=== PATIENT | male | born 1960 | race Two or more races ===

== ENCOUNTER → 2020-02-18 13:18 | Outpatient (BNVA) | payer OTHER, SELFPAY | PROVIDERS: PCP Internal Medicine; Visit Provider Nurse Practitioner Family | DX: Z76.89 Persons encountering health services in other specified circumstances (principal) ==

== ENCOUNTER → 2020-02-20 15:49 | Outpatient (BNVA) | payer OTHER, SELFPAY | PROVIDERS: PCP Internal Medicine; Visit Provider Nurse Practitioner Family | DX: Z76.89 Persons encountering health services in other specified circumstances (principal) ==

== ENCOUNTER 2020-02-28 16:02 | Outpatient (REF) | payer OTHER, SELFPAY | END 2020-02-28 16:03 | disposition home or self-care (01) | LOC: HO.LAB 16:02 | PROVIDERS: Visit Provider Internal Medicine | DX: Z20.828 Contact with and (suspected) exposure to other viral communicable diseases (principal) | CPT/HCPCS: C9803; U0003 ==

== ENCOUNTER 2020-05-15 12:34 | Emergency (ER) | payer OTHER, SELFPAY ==
[2020-05-15 12:50] VITALS: BP 130/80; PULSE 84; RESP 18; TEMP 36.6; O2SAT 99; BMI 29.4
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
--- NOTE | 2020-05-15 13:21 | XR_ITS ---
EXAMINATION: XR ELBOW, LEFT CLINICAL INFORMATION: Left elbow pain. COMPARISON: None TECHNIQUE: AP, lateral, and oblique views of the left elbow. FINDINGS: There is no acute fracture or dislocation. There is no joint effusion. A moderate-sized posterior olecranon spur is noted. The soft tissues are unremarkable. XR/XR elbow LT min 3V IMPRESSION: Moderate size posterior olecranon spur without other significant/acute abnormality.
[2020-05-15] MEDS: Ibuprofen 800 MG TABLET PO (13:43)
[2020-05-15] MEDS: oxyCODONE HCl Immed Release 5 MG TABLET PO (13:43)
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
== END 2020-05-15 15:26 | disposition home or self-care (01) ==
PROVIDERS: Emergency Provider Emergency Medicine; PCP Internal Medicine
DX: S43.401A Unspecified sprain of right shoulder joint, initial encounter (principal); S53.402A Unspecified sprain of left elbow, initial encounter; M77.8 Other enthesopathies, not elsewhere classified; M25.512 Pain in left shoulder; M25.511 Pain in right shoulder; I10 Essential (primary) hypertension; V43.52XA Car driver injured in collision with other type car in traffic accident, initial encounter; Y93.9 Activity, unspecified; Y92.410 Unspecified street and highway as the place of occurrence of the external cause; Y99.9 Unspecified external cause status; Z79.899 Other long term (current) drug therapy
CPT/HCPCS: 73030; 73080; 73090; 99283; 99284

== ENCOUNTER 2020-07-11 06:58 | Outpatient (REF) | payer OTHER, SELFPAY ==
[2020-07-11 07:27] LABS: Hematocrit 39.2 % (42-52); Hemoglobin 13.2 g/dl (14.0-18.0); Mean Corpuscular HGB Conc 33.7 g/dl (31.0-36.0); Mean Corpuscular Volume 94.9 fL (80-98); Mean Platelet Volume 9.9 fL (9.4-12.4); Platelet Count 203 X10*3/uL (160-400); Red Blood Count 4.13 X10*6/uL (4.60-5.80); Red Cell Distribution Width 13.2 % (11.0-16.0); White Blood Count 5.2 X10*3/uL (4.8-10.8)
[2020-07-11 07:57] LABS: Alanine Aminotransferase 15 U/L (0-40); Albumin Level 3.9 g/dL (3.5-5.0); Alkaline Phosphatase 65 U/L (39-117); Anion Gap 13 (12-20); Aspartate Amino Transferase 15 U/L (5-37); Bilirubin Total 0.3 mg/dL (0.0-1.0); Blood Urea Nitrogen 14 mg/dL (9-16); Calcium 8.9 mg/dL (8.4-10.2); Carbon Dioxide 24 mmol/L (22-29); Chloride 107 mmol/L (96-108); Cholesterol 135 mg/dL; Creatinine Urine 146.48 mg/dL; Estimated Glomerular Filt Rate > 60; Glucose Random 129 mg/dL (60-115); HDL Cholesterol 71 mg/dL; LDL Cholesterol Calculated 45 mg/dl; Microalbum/Creatinine Ratio Ur 8.8 ug/mg cr; Potassium 4.2 mmol/L (3.3-5.1); Sodium 140 mmol/L (135-145); Total Protein 6.2 g/dL (6.5-8.0); Triglycerides 98 mg/dL
== END 2020-07-11 06:59 | disposition home or self-care (01) ==
LOC: HO.LAB 06:58
PROVIDERS: Absent Provider Internal Medicine; PCP Internal Medicine; Visit Provider Nurse Practitioner Family
DX: E78.2 Mixed hyperlipidemia (principal); E11.9 Type 2 diabetes mellitus without complications; Z12.11 Encounter for screening for malignant neoplasm of colon
CPT/HCPCS: 36415; 80053; 80061; 82043; 85027

== ENCOUNTER 2020-10-24 07:15 | Outpatient (REF) | payer OTHER, SELFPAY ==
[2020-10-24 08:01] LABS: MANUAL DIFF FLAG NO
[2020-10-24 08:04] LABS: Basophils Percent Auto 0.7 % (0-2); Eosinophils Absolute Auto 0.1 X10*3/uL (0.0-0.4); Eosinophils Percent Auto 1.8 % (0-4); Hematocrit 41.8 % (42-52); Hemoglobin 14.5 g/dl (14.0-18.0); Imm Gran Abs Auto 0.02 X10*3/uL (0.00-0.03); Imm Gran Pct Auto 0.4 % (0.0-0.4); Lymphocytes Absolute Auto 2.2 X10*3/uL (1.2-4.9); Lymphocytes Percent Auto 40.5 % (20-40); Mean Corpuscular HGB Conc 34.7 g/dl (31.0-36.0); Mean Corpuscular Hemoglobin 32.4 pg (27.0-33.0); Mean Corpuscular Volume 93.3 fL (80-98); Mean Platelet Volume 9.9 fL (9.4-12.4); Monocytes Absolute Auto 0.5 X10*3/uL (0.1-1.2); Monocytes Percent Auto 8.3 % (2-11); Neutrophils Absolute Auto 2.6 X10*3/uL (2.0-8.3); Neutrophils Percent Auto 48.3 % (45-73); Platelet Count 220 X10*3/uL (160-400); Red Blood Count 4.48 X10*6/uL (4.60-5.80); White Blood Count 5.4 X10*3/uL (4.8-10.8)
[2020-10-24 08:31] LABS: Alanine Aminotransferase 141 U/L (0-40); Albumin Level 3.7 g/dL (3.5-5.0); Alkaline Phosphatase 103 U/L (39-117); Anion Gap 15 (12-20); Aspartate Amino Transferase 72 U/L (5-37); Bilirubin Total 0.6 mg/dL (0.0-1.0); Blood Urea Nitrogen 10 mg/dL (9-16); Calcium 9.2 mg/dL (8.4-10.2); Carbon Dioxide 26 mmol/L (22-29); Chloride 102 mmol/L (96-108); Cholesterol 144 mg/dL; Estimated Glomerular Filt Rate > 60; Glucose Fasting 198 mg/dL (60-99); HDL Cholesterol 64 mg/dL; LDL Cholesterol Calculated 59 mg/dl; Potassium 4.5 mmol/L (3.3-5.1); Sodium 138 mmol/L (135-145); Total Protein 6.3 g/dL (6.5-8.0); Triglycerides 105 mg/dL
[2020-10-24 08:34] LABS: Creatinine Urine 158.98 mg/dL; Microalbum/Creatinine Ratio Ur 13.2 ug/mg cr
[2020-10-29 19:01] LABS: Vitamin D 25-OH, D2 <4 ng/mL; Vitamin D 25-OH, D3 28 ng/mL; Vitamin D 25-OH, Total 28 ng/mL (30-100)
== END 2020-10-24 07:16 | disposition home or self-care (01) ==
LOC: HO.LAB 07:15
PROVIDERS: PCP Internal Medicine; Visit Provider Internal Medicine
DX: E55.9 Vitamin D deficiency, unspecified (principal); D64.9 Anemia, unspecified; E78.2 Mixed hyperlipidemia; E78.5 Hyperlipidemia, unspecified; E11.9 Type 2 diabetes mellitus without complications; I10 Essential (primary) hypertension
CPT/HCPCS: 36415; 80053; 80061; 82043; 82306; 85025

== ENCOUNTER 2020-10-26 09:44 | Outpatient (REF) | payer OTHER, SELFPAY ==
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
== END 2020-10-26 09:45 | disposition home or self-care (01) ==
LOC: HO.HMGCX 09:44
PROVIDERS: PCP Internal Medicine; Visit Provider Nurse Practitioner Family
DX: S89.92XA Unspecified injury of left lower leg, initial encounter (principal)
CPT/HCPCS: 73564

== ENCOUNTER 2020-11-02 09:50 | Outpatient (REF) | payer OTHER, SELFPAY ==
--- NOTE | ~2020-11-02 | XR_ITS ---
EXAMINATION: XR ANKLE, LEFT CLINICAL INFORMATION: M25.572 - Pain in left ankle and joints of left foot COMPARISON: None TECHNIQUE: AP, lateral, and mortise views of the left ankle. FINDINGS: The malleoli are intact and the ankle mortise is symmetric. There is no fracture or dislocation. Talar dome shows no osteochondral lesion. There is no ankle joint narrowing or chondrocalcinosis. Visualized subtalar joint is unremarkable. There is small posterior calcaneal spur. Retrocalcaneal recess is preserved. Mild dorsal spurring is present talonavicular region. XR/XR ankle LT min 3V IMPRESSION: 1. Unremarkable ankle joint. 2. Small posterior calcaneal spur. Mild spurring dorsal talonavicular.
== END 2020-11-02 09:51 | disposition home or self-care (01) ==
LOC: HO.HMGCX 09:50
PROVIDERS: PCP Internal Medicine; Visit Provider Hospitalist
DX: M25.572 Pain in left ankle and joints of left foot (principal)
CPT/HCPCS: 73610

== ENCOUNTER → 2020-11-05 14:12 | Outpatient (BNVA) | payer OTHER, SELFPAY | PROVIDERS: Visit Provider Physician Assistant | DX: M17.12 Unilateral primary osteoarthritis, left knee (principal) | CPT/HCPCS: 20610; J1020 ==

== ENCOUNTER 2021-02-09 11:36 | Outpatient (REF) | payer OTHER, SELFPAY ==
--- NOTE | ~2021-02-09 | XR_ITS ---
EXAMINATION: XR CHEST CLINICAL INFORMATION: Shortness of breath COMPARISON: Chest and left rib x-rays July 2018 TECHNIQUE: 2 views of the chest were obtained. FINDINGS: No significant abnormality is noted involving the heart, lungs, mediastinum, bony thorax or soft tissues. XR/XR chest 2V IMPRESSION: Unremarkable examination.
[2021-02-09 15:03] LABS: Influenza A PCR NEGATIVE (Negative); Influenza B PCR NEGATIVE (Negative); Resp Syncy Virus RNA Qual PCR NEGATIVE (Negative); SARS COV2 PCR INHOUSE POSITIVE (Negative)
== END 2021-02-09 11:37 | disposition home or self-care (01) ==
LOC: HO.HMGCX 11:36
PROVIDERS: PCP Internal Medicine; Visit Provider Internal Medicine
DX: R06.02 Shortness of breath (principal); R43.9 Unspecified disturbances of smell and taste
CPT/HCPCS: 0241U; 36415; 71046

== ENCOUNTER 2022-01-25 05:55 | Outpatient (REF) | payer OTHER, SELFPAY ==
[2022-01-25 06:09] LABS: MANUAL DIFF FLAG NO
[2022-01-25 07:26] LABS: Basophils Absolute Auto 0.1 X10*3/uL (0.0-0.2); Basophils Percent Auto 0.7 % (0-2); Eosinophils Absolute Auto 0.2 X10*3/uL (0.0-0.4); Eosinophils Percent Auto 2.4 % (0-4); Hematocrit 43.3 % (42.0-52.0); Hemoglobin 14.6 g/dl (14.0-18.0); Imm Gran Abs Auto 0.03 X10*3/uL (0.00-0.03); Imm Gran Pct Auto 0.4 % (0.0-0.4); Lymphocytes Absolute Auto 2.6 X10*3/uL (1.2-4.9); Lymphocytes Percent Auto 37.9 % (20-40); Mean Corpuscular HGB Conc 33.7 g/dl (31.0-36.0); Mean Corpuscular Hemoglobin 31.7 pg (27.0-33.0); Mean Corpuscular Volume 94.1 fL (80.0-98.0); Mean Platelet Volume 10.3 fL (9.4-12.4); Monocytes Absolute Auto 0.7 X10*3/uL (0.1-1.2); Monocytes Percent Auto 9.9 % (2-11); Neutrophils Absolute Auto 3.3 x10*3/uL (2.0-8.3); Neutrophils Percent Auto 48.7 % (45-73); Platelet Count 225 X10*3/uL (160-400); Red Cell Distribution Width 12.4 % (11.0-16.0); White Blood Count 6.8 X10*3/uL (4.8-10.8)
[2022-01-25 08:13] LABS: Alanine Aminotransferase 37 U/L (0-40); Alkaline Phosphatase 90 U/L (39-117); Anion Gap 14 (12-20); Aspartate Amino Transferase 42 U/L (5-37); Bilirubin Total 0.3 mg/dL (0.0-1.0); Blood Urea Nitrogen 11 mg/dL (9-16); Calcium 9.2 mg/dL (8.4-10.2); Carbon Dioxide 30 mmol/L (22-29); Chloride 101 mmol/L (96-108); Cholesterol 190 mg/dL; Estimated Glomerular Filt Rate > 60; Glucose Fasting 125 mg/dL (60-99); HDL Cholesterol 68 mg/dL; LDL Cholesterol Calculated 85 mg/dl; Potassium 4.8 mmol/L (3.3-5.1); Sodium 140 mmol/L (135-145); Total Protein 6.7 g/dL (6.5-8.0); Triglycerides 189 mg/dL
[2022-01-25 08:19] LABS: Creatinine Urine 111.97 mg/dL; Microalbum/Creatinine Ratio Ur 59.8 ug/mg cr
[2022-01-25 08:42] LABS: Vitamin D 25-OH Total 26.8 ng/mL (>30)
== END 2022-01-25 05:56 | disposition home or self-care (01) ==
LOC: HO.LAB 05:55
PROVIDERS: PCP Internal Medicine; Visit Provider Internal Medicine
DX: Z00.00 Encounter for general adult medical examination without abnormal findings (principal); E11.9 Type 2 diabetes mellitus without complications; E55.9 Vitamin D deficiency, unspecified; J30.1 Allergic rhinitis due to pollen; E78.5 Hyperlipidemia, unspecified
CPT/HCPCS: 36415; 80053; 80061; 82043; 82306; 85025

== ENCOUNTER 2022-11-08 12:17 | Outpatient (AMB) | payer OTHER, SELFPAY ==
[2022-11-08 12:24] VITALS: BP 130/80; BMI 28.3
--- NOTE | 2022-11-08 12:24 | MHC.PC.OV ---
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 Accompanied by: Self / Same As Patient Allergies No Known Allergies Allergy (Verified 11/08/22 12:36) Medication List - Last Reconciled 11/08/22 by Kaitlynn Lima MD albuterol sulfate 90 mcg/actuation 2 puffs inhalation Q6H PRN 30 days atorvastatin 20 mg PO BEDTIME 90 days fenofibrate nanocrystallized 145 mg PO DAILY 90 days lisinopril 30 mg PO DAILY 90 days metformin 1,000 mg PO BID 90 days pioglitazone 45 mg PO DAILY 90 days Tobacco use date assessed: 05/31/22 Dental Screening Dental Screen Date: 11/08/22 Did you have a dental visit in the last 12 months?: No Did you have a dental problem in the last 6 months where you did not have access to dental care?: No Was dental information given to patient?: Patient has dentist HPI HPI Comments History of Present Illness Details This is a 61-year-old male with alcoholism and diabetes mellitus type 2 that comes for his physical exam. He was advised to cut down on drinking alcohol daily. A1c elevated and he declines the use of insulin. He is willing to try Trulicity once a week. Last colonoscopy was at 49 years old and was normal and saw Gastroenterology for repeating screening colonoscopy but still pending for a date. No chest pain or shortness of breath. [facility] Medical History Alcoholism Allergic rhinitis BPH (benign prostatic hyperplasia) Diabetes mellitus Essential hypertension Mild asthma Mixed hyperlipidemia Neck pain Obese Physical exam Surgical History History of colonoscopy Family History Father History of alcohol abuse Mother Alive and well Social History (Updated 11/08/22 @ 12:39 by Kaitlynn Lima MD) Housing: House Alcohol intake: current Alcohol intake frequency: 0-2 drinks per day Alcohol type: beer Patient Tobacco Use Status: Never used Tobacco e-Cigarette/Vaping Use: Never Used Second Hand Smoke Exposure: No service: No Current occupational status: employed Current occupation: rt handed Current occupational exposures/hazards: No Cognitive needs: No Hearing needs: No Vision needs: Yes Questionnaire Thrive Questionnaire Date Thrive assessed: 05/31/22 ROCHELLE-7 AMB Questionnaire ROCHELLE-7 Date ROCHELLE - 7 assessed: 05/31/22 Source: Developed by Drs. Carlos Rider, Ruba Harrison, Dereck Clarke and colleagues, with an educational yogi from [employer]. Review of Systems Const All systems reviewed & are unremarkable except as noted in HPI and below Eyes Reports no additional complaints, Denies change in vision and Denies other visual disturbances Card Denies chest pain at rest, Denies chest pain with activity, Denies edema, Denies irregular heart rhythm, Denies claudication, Denies dyspnea, Denies dyspnea on exertion, Denies orthopnea, Denies paroxysmal nocturnal dyspnea and Denies slow heart rate Resp Denies cough, Denies dyspnea and Denies dyspnea on exertion GI Denies abdominal pain, Denies change in bowel habits, Denies excessive flatus, Denies nausea and Denies vomiting Denies urinary hesitancy, Denies urinary incontinence and Denies urinary urgency Musc Denies abnormal gait, Denies atrophy, Denies deformity and Denies limited range of motion Skin/Breast Denies bleeding lesions, Denies changing lesions and Denies rash Neuro Denies abnormal gait and Denies lack of coordination Physical exam (Primary Care) Vital Signs: Last Vital Signs BP 130/80 11/08/22 12:24 BMI result Body Mass Index 28.3 Tobacco/Smoking Status: Tobacco use Status Tobacco use date assessed 05/31/22 11/08/22 12:33 Patient Tobacco Use Status Never used Tobacco 11/08/22 12:33 e-Cigarette/Vaping Use Never Used 11/08/22 12:33 Thrive Assessment: Date of Thrive Assessment Date Thrive assessed 05/31/22 11/08/22 12:33 Const Orientation/consciousness: patient oriented x3 HENMT Head: Yes normal to inspection, Yes normocephalic and Yes atraumatic Ears: external ears normal Eyes General: appearance normal, both eyes and all related structures Eyelids: Yes eyelids normal Conjunctivae: conjunctivae normal Neck Neck: Yes normal visual inspection and Yes supple Resp Effort & Inspection: normal respiratory effort Auscultation: clear to auscultation bilaterally Cardio Jugular venous distension: no JVD Rate: regular rate Rhythm: regular rhythm Heart sounds: S1 normal heart sound present and S2 normal heart sound present GI Inspection: Yes normal to inspection Palpation (GI): Soft to palpation and nontender Auscultation: normal bowel sounds Skin General skin exam: no rashes or lesions noted Neuro General: patient oriented x3 and no focal motor deficits Extrem General: Yes full ROM Psych Appearance: grossly normal Results AMB Hemoglobin A1c AMB Hemoglobin A1c 10.2 % Last Edit by ALBERTO Duarte on 11/08/22 12:42 Assessment and Plan Assessment & Plan (1) Physical exam: Code(s): Z00.00 - Encounter for general adult medical examination without abnormal findings Plan: Repeat in a year (2) Alcoholism: Code(s): F10.20 - Alcohol dependence, uncomplicated Plan: Advised to cut down on drinking alcohol (3) Diabetes mellitus: Code(s): E11.9 - Type 2 diabetes mellitus without complications Qualifiers: Diabetes mellitus type: type 2 Diabetes mellitus superintendent container terminal insulin use: without superintendent container terminal use Diabetes mellitus complication status: without complication Qualified Code(s): E11.9 - Type 2 diabetes mellitus without complications Plan: Continue metformin and Actos. Start Trulicity. Patient declines insulin. A1c goal is equal or less than 7%. Orders: Orders Comprehensive [place]. Panel Fast Today E11.9 - Type 2 diabetes mellitus without complications Lipid Panel Today E78.5 - Hyperlipidemia, unspecified Microalbumin, Random (w Creat) Today E11.9 - Type 2 diabetes mellitus without complications Complete Blood Count Auto Diff Today M17.12 - Unilateral primary osteoarthritis, left knee AMB Hemoglobin A1c Today E11.9 - Type 2 diabetes mellitus without complications Medications: New Ventolin HFA 90 mcg/actuation (albuterol sulfate) 2 puffs inhalation Q6H 30 days PRN 8 grams 1RF shortness of breath or wheezing NS dulaglutide (Trulicity) 0.75 mg (0.5 mL) subcut QWEEK 90 days 6.5 mL 1RF E11.9 - Type 2 diabetes mellitus without complications Discontinued albuterol sulfate 90 mcg/actuation Discontinued Reason: Insurance Denied 2 puffs inhalation Q6H 30 days PRN 18 grams 2RF shortness of breath or wheezing Coding Level of Care Code Est Pt Prev Care 40-64y(00890) Diagnoses Physical exam Z00.00 Alcoholism F10.20 Diabetes mellitus E11.9 Diabetes mellitus type: type 2 Diabetes mellitus retirement insulin use: without superintendent container terminal use Diabetes mellitus complication status: without complication Time Spent (min) 32
== END 2022-11-08 12:44 | disposition home or self-care (01) ==
PROVIDERS: Visit Provider Internal Medicine
DX: Z00.00 Encounter for general adult medical examination without abnormal findings (principal); F10.20 Alcohol dependence, uncomplicated; E11.9 Type 2 diabetes mellitus without complications
CPT/HCPCS: 83036; 99396

== ENCOUNTER 2022-12-16 08:59 | Outpatient (REF) | payer OTHER, SELFPAY ==
[2022-12-16 09:26] LABS: MANUAL DIFF FLAG NO
[2022-12-16 10:03] LABS: Basophils Absolute Auto 0.1 X10*3/uL (0.0-0.2); Basophils Percent Auto 0.8 % (0-2); Eosinophils Absolute Auto 0.1 X10*3/uL (0.0-0.4); Eosinophils Percent Auto 1.9 % (0-4); Hematocrit 43.6 % (42.0-52.0); Hemoglobin 14.7 g/dl (14.0-18.0); Imm Gran Abs Auto 0.01 X10*3/uL (0.00-0.03); Imm Gran Pct Auto 0.2 % (0.0-0.4); Lymphocytes Absolute Auto 2.4 X10*3/uL (1.2-4.9); Mean Corpuscular HGB Conc 33.7 g/dl (31.0-36.0); Mean Corpuscular Hemoglobin 31.1 pg (27.0-33.0); Mean Corpuscular Volume 92.4 fL (80.0-98.0); Monocytes Absolute Auto 0.5 X10*3/uL (0.1-1.2); Monocytes Percent Auto 8.3 % (2-11); Neutrophils Absolute Auto 3.1 x10*3/uL (2.0-8.3); Neutrophils Percent Auto 49.8 % (45-73); Platelet Count 251 X10*3/uL (160-400); Red Blood Count 4.72 X10*6/uL (4.60-5.80); Red Cell Distribution Width 11.9 % (11.0-16.0); White Blood Count 6.3 X10*3/uL (4.8-10.8)
[2022-12-16 11:08] LABS: Alanine Aminotransferase 32 U/L (0-40); Alkaline Phosphatase 92 U/L (39-117); Anion Gap 13 (12-20); Aspartate Amino Transferase 24 U/L (5-37); Bilirubin Total 0.4 mg/dL (0.0-1.0); Blood Urea Nitrogen 15 mg/dL (9-16); Calcium 9.2 mg/dL (8.4-10.2); Carbon Dioxide 23 mmol/L (22-29); Chloride 105 mmol/L (96-108); Cholesterol 187 mg/dL (<200); Estimated Glomerular Filt Rate > 60; Glucose Fasting 156 mg/dL (60-99); HDL Cholesterol 53 mg/dL (>40); LDL Cholesterol Calculated 98 mg/dL (<100); Potassium 4.4 mmol/L (3.3-5.1); Sodium 137 mmol/L (135-145); Total Protein 6.8 g/dL (6.5-8.0); Triglycerides 182 mg/dL (<150)
[2022-12-16 11:23] LABS: Creatinine Urine 88.61 mg/dL
== END 2022-12-16 09:00 | disposition home or self-care (01) ==
LOC: HO.LAB 08:59
PROVIDERS: PCP Internal Medicine; Visit Provider Internal Medicine
DX: M17.12 Unilateral primary osteoarthritis, left knee (principal); E78.5 Hyperlipidemia, unspecified; E11.9 Type 2 diabetes mellitus without complications
CPT/HCPCS: 36415; 80053; 80061; 82043; 82570; 85025

== ENCOUNTER 2023-03-20 06:02 | Outpatient (REF) | payer OTHER, SELFPAY ==
[2023-03-20 08:13] LABS: Alanine Aminotransferase 52 U/L (0-40); Albumin Level 3.6 g/dL (3.5-5.0); Alkaline Phosphatase 111 U/L (39-117); Anion Gap 11 (12-20); Aspartate Amino Transferase 53 U/L (5-37); Bilirubin Total 0.3 mg/dL (0.0-1.0); Blood Urea Nitrogen 13 mg/dL (9-16); Calcium 8.1 mg/dL (8.4-10.2); Carbon Dioxide 24 mmol/L (22-29); Chloride 109 mmol/L (96-108); Cholesterol 146 mg/dL (<200); Estimated Glomerular Filt Rate > 60; Glucose Fasting 204 mg/dL (60-99); HDL Cholesterol 51 mg/dL (>40); LDL Cholesterol Calculated 58 mg/dL (<100); Potassium 3.5 mmol/L (3.3-5.1); Sodium 140 mmol/L (135-145); Total Protein 6.1 g/dL (6.5-8.0); Triglycerides 185 mg/dL (<150)
[2023-03-20 09:08] LABS: Creatinine Urine 158.23 mg/dL; Microalbum/Creatinine Ratio Ur 32.8 ug/mg cr (<30)
== END 2023-03-20 06:03 | disposition home or self-care (01) ==
LOC: HO.LAB 06:02
PROVIDERS: PCP Internal Medicine; Visit Provider Internal Medicine
DX: E11.9 Type 2 diabetes mellitus without complications (principal); E78.5 Hyperlipidemia, unspecified
CPT/HCPCS: 36415; 80053; 80061; 82043; 82570

== ENCOUNTER 2023-03-22 15:13 | Outpatient (REF) | payer OTHER, SELFPAY ==
[2023-03-22 16:01] LABS: Appearance Urine Clear; Color Urine Yellow; Glucose Urine UA Negative (Negative); Leukocyte Esterase Urine Negative (Negative); Nitrite Urine Negative (Negative); PH 5.5 (5.0-9.0); Specific Gravity - Urine 1.025 (1.005-1.025); Urine Blood Negative (Negative); Urine Ketones Negative (Negative); Urine Protein Negative (Neg-Trace)
[2023-03-22 16:34] LABS: Anion Gap 9 (12-20); Blood Urea Nitrogen 14 mg/dL (9-16); Calcium 9.3 mg/dL (8.4-10.2); Carbon Dioxide 30 mmol/L (22-29); Chloride 105 mmol/L (96-108); Estimated Glomerular Filt Rate > 60; Sodium 140 mmol/L (135-145)
[2023-03-22 17:02] LABS: Microalbum/Creatinine Ratio Ur 30.2 ug/mg cr (<30); Protein/Creatinine Ratio, Ur 0.11 (<0.2); Total Protein Urine Random 19 mg/dL (<12)
== END 2023-03-22 15:14 | disposition home or self-care (01) ==
LOC: HO.LAB 15:13
PROVIDERS: PCP Internal Medicine; Visit Provider Internal Medicine Nephrology
DX: I12.9 Hypertensive chronic kidney disease with stage 1 through stage 4 chronic kidney disease, or unspecified chronic kidney disease (principal); N18.2 Chronic kidney disease, stage 2 (mild)
CPT/HCPCS: 36415; 80051; 81003; 82043; 82310; 82565; 82570; 84156; 84520

== ENCOUNTER 2023-03-23 08:03 | Outpatient (AMB) | payer OTHER, SELFPAY ==
[2023-03-23 08:30] VITALS: BP 122/70; BMI 28.6
--- NOTE | 2023-03-23 08:30 | MHC.PC.OV ---
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: No Accompanied by: Self / Same As Patient Allergies No Known Allergies Allergy (Verified 03/23/23 08:40) Medication List - Last Reconciled 03/23/23 by Kaitlynn Lima MD atorvastatin 20 mg PO BEDTIME 90 days lisinopril 30 mg PO DAILY 90 days metformin 1,000 mg PO BID 90 days Ventolin HFA 90 mcg/actuation (albuterol sulfate) 2 puffs inhalation Q6H PRN 30 days NS Tobacco use date assessed: 05/31/22 Dental Screening Dental Screen Date: 03/23/23 Did you have a dental visit in the last 12 months?: No Did you have a dental problem in the last 6 months where you did not have access to dental care?: No Was dental information given to patient?: Patient has dentist HPI HPI Comments History of Present Illness Details This is a 62-year-old male with diabetes mellitus type 2, hypertension, mixed hyperlipidemia, mild asthma and alcoholism that comes today for follow-up on his conditions. Blood pressure stable. A1c elevated but he is only taking metformin at 1000 mg twice a day. He is afraid of needles therefore no Trulicity. He was not taking Actos. LDL within goal. Use rescue inhaler once a month. He said he drinks every day about 2 nips of Tequila. Was advised to cut down on drinking alcohol. No chest pain or shortness of breath. [facility] Medical History Physical exam Allergic rhinitis Mild asthma Neck pain Alcoholism Obese BPH (benign prostatic hyperplasia) Essential hypertension Mixed hyperlipidemia Diabetes mellitus Surgical History History of colonoscopy Family History Father History of alcohol abuse Mother Alive and well Social History Housing: House Alcohol intake: current Alcohol intake frequency: 0-2 drinks per day Alcohol type: beer Patient Tobacco Use Status: Never used Tobacco e-Cigarette/Vaping Use: Never Used Second Hand Smoke Exposure: No service: No Current occupational status: employed Current occupation: rt handed Current occupational exposures/hazards: No Cognitive needs: No Hearing needs: No Vision needs: Yes Questionnaire Thrive Questionnaire Date Thrive assessed: 05/31/22 ROCHELLE-7 AMB Questionnaire ROCHELLE-7 Date ROCHELLE - 7 assessed: 05/31/22 Source: Developed by Drs. Carlos Rider, Ruba Harrison, Dereck Clarke and colleagues, with an educational yogi from [employer]. Review of Systems Const All systems reviewed & are unremarkable except as noted in HPI and below Eyes Reports no additional complaints, Denies change in vision and Denies other visual disturbances Card Denies chest pain at rest, Denies chest pain with activity, Denies edema, Denies irregular heart rhythm, Denies claudication, Denies dyspnea, Denies dyspnea on exertion, Denies orthopnea, Denies paroxysmal nocturnal dyspnea and Denies slow heart rate Resp Denies cough, Denies dyspnea and Denies dyspnea on exertion GI Denies abdominal pain, Denies change in bowel habits, Denies excessive flatus, Denies nausea and Denies vomiting Denies urinary hesitancy, Denies urinary incontinence and Denies urinary urgency Musc Denies abnormal gait, Denies atrophy, Denies deformity and Denies limited range of motion Skin/Breast Denies bleeding lesions, Denies changing lesions and Denies rash Neuro Denies abnormal gait and Denies lack of coordination Physical exam (Primary Care) Vital Signs: Last Vital Signs BP 122/70 03/23/23 08:30 BMI result Body Mass Index 28.6 Tobacco/Smoking Status: Tobacco use Status Tobacco use date assessed 05/31/22 03/23/23 08:32 Patient Tobacco Use Status Never used Tobacco 03/23/23 08:32 e-Cigarette/Vaping Use Never Used 03/23/23 08:32 Thrive Assessment: Date of Thrive Assessment Date Thrive assessed 05/31/22 03/23/23 08:32 Eyes General: appearance normal, both eyes and all related structures Eyelids: Yes eyelids normal Conjunctivae: conjunctivae normal Neck Neck: Yes normal visual inspection and Yes supple Resp Effort & Inspection: normal respiratory effort Auscultation: clear to auscultation bilaterally Cardio Jugular venous distension: no JVD Rate: regular rate Rhythm: regular rhythm Heart sounds: S1 normal heart sound present and S2 normal heart sound present Extrem General: Yes full ROM Office Procedures Flu Questionnaire Does the patient have a severe egg allergy?: No Results AMB Hemoglobin A1c AMB Hemoglobin A1c 9.2 % Last Edit by ALBERTO Duarte on 03/23/23 08:45 Immunizations flu vacc [id number] 6mos up(PF) 60 mcg(15 mcgx4)/0.5 mL IM syringe Performing Provider: Kaitlynn Lima MD [place] [facility] Documented (not given) by: ALBERTO Duarte on 03/23/23 08:50 Reason Not Given: Not Given Results Reviewed Results Reviewed: Laboratory Last Values Hgb A1c (Clinic) 9.2 % (4.0-6.0) H 03/23/23 08:33 Assessment and Plan Assessment & Plan (1) Diabetes mellitus: Code(s): E11.9 - Type 2 diabetes mellitus without complications Qualifiers: Diabetes mellitus type: type 2 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 Start Jardiance. A1c goal is equal or less than 7%. (2) Mixed hyperlipidemia: Code(s): E78.2 - Mixed hyperlipidemia Plan: Continue statins. LDL goal is less than 70. (3) Essential hypertension: Code(s): I10 - Essential (primary) hypertension Plan: Continue lisinopril. Blood pressure goal is equal or less than 130/80. (4) Alcoholism: Code(s): F10.20 - Alcohol dependence, uncomplicated Plan: Was advised to cut down on drinking alcohol. (5) Mild asthma: Code(s): J45.909 - Unspecified asthma, uncomplicated Qualifiers: Asthma persistence: persistent Asthma complication type: uncomplicated Qualified Code(s): J45.30 - Mild persistent asthma, uncomplicated Plan: Use rescue inhaler as needed. Orders: Orders Microalbumin, Random (w Creat) 4 Months E11.9 - Type 2 diabetes mellitus without complications AMB Hemoglobin A1c Today E11.9 - Type 2 diabetes mellitus without complications Influenza [id number] Immunization Today Z23 - Encounter for immunization Lipid Panel 4 Months E78.5 - Hyperlipidemia, unspecified Vitamin D 25-OH Total 4 Months E55.9 - Vitamin D deficiency, unspecified Comprehensive [place]. Panel Fast 4 Months E11.9 - Type 2 diabetes mellitus without complications Medications: New empagliflozin (Jardiance) 10 mg PO DAILY 90 days 90 tabs 1RF E11.9 - Type 2 diabetes mellitus without complications Coding Level of Care Code Est Pt Level 4 (02638) Diagnoses Type 2 diabetes mellitus without complication, without long-term current use of insulin E11.9 Diabetes mellitus type: type 2 Diabetes mellitus nursing home insulin use: without nursing home use Diabetes mellitus complication status: without complication Mixed hyperlipidemia E78.2 Essential hypertension I10 Alcoholism F10.20 Mild persistent asthma without complication J45.30 Asthma persistence: persistent Asthma complication type: uncomplicated Time Spent (min) 22
== END 2023-03-23 08:52 | disposition home or self-care (01) ==
PROVIDERS: PCP Internal Medicine; Visit Provider Internal Medicine
DX: E11.9 Type 2 diabetes mellitus without complications (principal); E78.2 Mixed hyperlipidemia; I10 Essential (primary) hypertension; F10.20 Alcohol dependence, uncomplicated; J45.30 Mild persistent asthma, uncomplicated
CPT/HCPCS: 83036; 99214

== ENCOUNTER 2023-07-22 10:09 | Outpatient (REF) | payer OTHER, SELFPAY ==
[2023-07-22 11:26] LABS: Alanine Aminotransferase 48 U/L (0-40); Albumin Level 4.2 g/dL (3.5-5.0); Alkaline Phosphatase 102 U/L (39-117); Anion Gap 12 (12-20); Aspartate Amino Transferase 22 U/L (5-37); Bilirubin Total 0.4 mg/dL (0.0-1.0); Blood Urea Nitrogen 19 mg/dL (9-16); Calcium 9.2 mg/dL (8.4-10.2); Carbon Dioxide 22 mmol/L (22-29); Chloride 109 mmol/L (96-108); Cholesterol 146 mg/dL (<200); Estimated Glomerular Filt Rate > 60; Glucose Fasting 176 mg/dL (60-99); HDL Cholesterol 65 mg/dL (>40); LDL Cholesterol Calculated 54 mg/dL (<100); Potassium 3.6 mmol/L (3.3-5.1); Sodium 139 mmol/L (135-145); Total Protein 7.4 g/dL (6.5-8.0); Triglycerides 138 mg/dL (<150)
[2023-07-22 11:32] LABS: Vitamin D 25-OH Total 19.3 ng/mL (>30)
== END 2023-07-22 10:10 | disposition home or self-care (01) ==
LOC: HO.LAB 10:09
PROVIDERS: PCP Internal Medicine; Visit Provider Internal Medicine
DX: E11.9 Type 2 diabetes mellitus without complications (principal); E78.5 Hyperlipidemia, unspecified; E55.9 Vitamin D deficiency, unspecified
CPT/HCPCS: 36415; 80053; 80061; 82306

== ENCOUNTER 2023-07-26 08:10 | Outpatient (AMB) | payer OTHER, SELFPAY ==
--- NOTE | 2023-07-26 08:12 | MHC.PC.OV ---
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 Required: No Accompanied by: Self / Same As Patient Allergies No Known Allergies Allergy (Verified 07/26/23 08:22) Medication List - Last Reconciled 07/26/23 by Kaitlynn Lima MD atorvastatin 20 mg PO BEDTIME 90 days empagliflozin (Jardiance) 10 mg PO DAILY 90 days lisinopril 30 mg PO DAILY 90 days metformin 1,000 mg PO BID 90 days Tobacco use date assessed: 07/26/23 Dental Screening Dental Screen Date: 07/26/23 Did you have a dental visit in the last 12 months?: No Did you have a dental problem in the last 6 months where you did not have access to dental care?: No Was dental information given to patient?: Patient has dentist HPI HPI Comments History of Present Illness Details This is a 62-year-old male with hypertension, mixed hyperlipidemia, diabetes mellitus type 2, alcoholism, 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 Blood pressure stable. LDL within goal. A1c not on goal and he admits that he does not take he is metformin or Jardiance while drinking alcohol and he drinks daily. He drinks 1 beer and 2 nips of Tequila daily and was oriented of [facility] comprehensive Care Center which can help him with his alcoholism. He said he will try to cut down on his own and if he does not he will let me know for the next office visit in October. He does have insomnia most likely due to alcohol and has tried trazodone in the past but give him dry mouth. I will start him on amitriptyline. Vitamin-D is low and I will start him on supplements. [facility] Medical History (Updated 07/26/23 @ 08:32 by Kaitlynn Lima MD) Physical exam Allergic rhinitis Mild asthma Neck pain Alcoholism Obese BPH (benign prostatic hyperplasia) Essential hypertension Mixed hyperlipidemia Diabetes mellitus Surgical History History of colonoscopy Family History Father History of alcohol abuse Mother Alive and well Social History (Updated 07/26/23 @ 08:26 by Kaitlynn Lima MD) Housing: House Alcohol intake: current Alcohol intake frequency: 3 or more drinks per day Alcohol type: beer Patient Tobacco Use Status: Never used Tobacco e-Cigarette/Vaping Use: Never Used Second Hand Smoke Exposure: No service: No Current occupational status: employed Current occupation: rt handed Current occupational exposures/hazards: No Cognitive needs: No Hearing needs: No Vision needs: Yes Questionnaire PHQ-9 Over the last 2 weeks, how often have you been bothered by any of the following problems? 1. Little interest or pleasure in doing things: not at all 2. Feeling down, depressed, or hopeless: not at all 3. Trouble falling or staying asleep, or sleeping too much: not at all 4. Feeling tired or having little energy: not at all 5. Poor appetite or overeating: not at all 6. Feeling bad about yourself - or that you are a failure or have let yourself or your family down: not at all 7. Trouble concentrating on things, such as reading the newspaper or watching television: not at all 8. Moving or speaking so slowly that other people could have noticed. Or the opposite - being so fidgety or restless that you have been moving around a lot more than usual: not at all 9. Thoughts that you would be better off or of hurting yourself in some way: not at all Total score: 0 Depression Screening Interpretation: Negative Depression Screening Done: Yes 18169 - PHQ-9 Billing: Yes Source: Developed by Drs. Carlos Rider, Ruba Harrison, Dereck Clarke and colleagues, with an educational yogi from [employer]. Thrive Questionnaire Date Thrive assessed: 07/26/23 I am a: Patient What is your living situation today?: I have a steady place to live Within the past 12 months, did the food you bought not last and you didn't have the money to get more?: Never true Within the past 12 months, did you worry whether your food would run out before you got money to buy more?: Never true Do you have trouble paying for medicines?: No Do you have trouble getting transportation to medical appointments?: No Do you have trouble paying your heating and electricity bill?: No Do you have trouble taking care of your child, family member or friend?: No Do you have trouble with day-to-day activities such as bathing, preparing meals, shopping, managing finances, etc.?: No Are you currently unemployed and looking for a job?: No Are you interested in more education?: No Please select the resources that you would like help with: None Currently or been in a relationship where the following occur: no concerns reported THRIVE Score: 0 AUDIT C Alcohol Use Questionnaire (AUDIT-C) 1. How often do you have a drink containing alcohol?: 4 or more times a week 2. How many drinks containing alcohol do you have on a typical day when you are drinking?: 3 or 4 3. How often do you have six or more drinks on one occasion?: Never Total Score: 5 Score Reviewed/Action Taken: Yes ROCHELLE-7 AMB Questionnaire ROCHELLE-7 Date ROCHELLE - 7 assessed: 07/26/23 Feeling nervous, anxious, or on edge: 0 = Not at all Not being able to stop or control worryin = Not at all Worrying too much about different things: 0 = Not at all Trouble relaxin = Not at all Being so restless that it is hard to sit still: 0 = Not at all Becoming easily annoyed or irritable: 0 = Not at all Feeling afraid as if something awful might happen: 0 = Not at all Total ROCHELLE-7 score (0-4 normal; 5-9 mild; 10-14 moderate; 15-21 severe): 0 Source: Developed by Drs. Carlos Rider, Ruba Harrison, Dereck Clarke and colleagues, with an educational yogi from [employer]. Review of Systems Const All systems reviewed & are unremarkable except as noted in HPI and below Eyes Reports no additional complaints, Denies change in vision and Denies other visual disturbances Card Denies chest pain at rest, Denies chest pain with activity, Denies edema, Denies irregular heart rhythm, Denies claudication, Denies dyspnea, Denies dyspnea on exertion, Denies orthopnea, Denies paroxysmal nocturnal dyspnea and Denies slow heart rate Resp Denies cough, Denies dyspnea and Denies dyspnea on exertion GI Denies abdominal pain, Denies change in bowel habits, Denies excessive flatus, Denies nausea and Denies vomiting Denies urinary hesitancy, Denies urinary incontinence and Denies urinary urgency Musc Denies abnormal gait, Denies atrophy, Denies deformity and Denies limited range of motion Skin/Breast Denies bleeding lesions, Denies changing lesions and Denies rash Neuro Denies abnormal gait and Denies lack of coordination Physical exam (Primary Care) Vital Signs: Last Vital Signs BP 122/72 07/26/23 08:13 BMI result Body Mass Index 28.5 Tobacco/Smoking Status: Tobacco use Status Tobacco use date assessed 07/26/23 07/26/23 08:19 Patient Tobacco Use Status Never used Tobacco 07/26/23 08:19 e-Cigarette/Vaping Use Never Used 07/26/23 08:19 PHQ-9: PHQ-9 Score PHQ-9: Total score 0 07/26/23 08:19 Depression Screening Interpretation: Negative Thrive Assessment: Date of Thrive Assessment Date Thrive assessed 07/26/23 07/26/23 08:19 Currently or been in a relationship where the following occur: no concerns reported Resp Effort & Inspection: normal respiratory effort Auscultation: clear to auscultation bilaterally Cardio Jugular venous distension: no JVD Rate: regular rate Rhythm: regular rhythm Heart sounds: S1 normal heart sound present and S2 normal heart sound present Extrem General: Yes full ROM Psych Appearance: grossly normal Results AMB Hemoglobin A1c AMB Hemoglobin A1c 8.4 % Last Edit by ALBERTO Duarte on 07/26/23 08:26 Assessment and Plan Assessment & Plan (1) Diabetes mellitus: Code(s): E11.9 - Type 2 diabetes mellitus without complications Qualifiers: Diabetes mellitus type: type 2 Diabetes mellitus alf insulin use: without alf use Diabetes mellitus complication status: without complication Qualified Code(s): E11.9 - Type 2 diabetes mellitus without complications Plan: Be compliant with metformin and Jardiance. I will increase Jardiance to 25 mg. A1c goal is equal or less than 7%. (2) Essential hypertension: Code(s): I10 - Essential (primary) hypertension Plan: Continue lisinopril. Blood pressure goal is equal or less than 130/80. (3) Mixed hyperlipidemia: Code(s): E78.2 - Mixed hyperlipidemia Plan: Continue statins. LDL goal is less than 70. (4) Alcoholism: Code(s): F10.20 - Alcohol dependence, uncomplicated Plan: Advised to cut down on drinking alcohol. He is aware of [facility] comprehensive Care Center for alcoholism and will think about it. 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 (6) Hypovitaminosis D: Code(s): E55.9 - Vitamin D deficiency, unspecified Plan: Start vitamin-D supplements. Orders: Orders AMB Hemoglobin A1c Today E11.9 - Type 2 diabetes mellitus without complications Vitamin D 25-OH Total Today E55.9 - Vitamin D deficiency, unspecified Lipid Panel Today E78.5 - Hyperlipidemia, unspecified Microalbumin, Random (w Creat) Today E11.9 - Type 2 diabetes mellitus without complications Comprehensive [place]. Panel Fast Today E11.9 - Type 2 diabetes mellitus without complications Vitamin B1 Today F10.20 - Alcohol dependence, uncomplicated Referrals Open Access Screening Colonoscopy Referral Z12.11 - Encounter for screening for malignant neoplasm of colon Medications: New empagliflozin (Jardiance) 25 mg PO DAILY 90 days 90 tabs 0RF E11.9 - Type 2 diabetes mellitus without complications cholecalciferol (vitamin D3) 25 mcg PO DAILY 90 days 90 caps 1RF E55.9 - Vitamin D deficiency, unspecified amitriptyline 10 mg PO BEDTIME 90 days 90 tabs 0RF F10.982 - Alcohol use, unspecified with alcohol-induced sleep disorder Discontinued empagliflozin (Jardiance) Discontinued Reason: No Longer Medically Relevant 10 mg PO DAILY 90 days 90 tabs 1RF E11.9 - Type 2 diabetes mellitus without complications Coding Level of Care Code Est Pt Level 4 (76032) Diagnoses Type 2 diabetes mellitus without complication, without long-term current use of insulin E11.9 Diabetes mellitus type: type 2 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
[2023-07-26 08:13] VITALS: BP 122/72; BMI 28.5
== END 2023-07-26 08:30 | disposition home or self-care (01) ==
PROVIDERS: PCP Internal Medicine; Visit Provider Internal Medicine
DX: E11.9 Type 2 diabetes mellitus without complications (principal); I10 Essential (primary) hypertension; E78.2 Mixed hyperlipidemia; F10.982 Alcohol use, unspecified with alcohol-induced sleep disorder; E55.9 Vitamin D deficiency, unspecified
CPT/HCPCS: 83036; 99214

== ENCOUNTER 2023-08-17 12:33 | Outpatient (AMB) | payer OTHER, SELFPAY ==
[2023-08-17 12:38] VITALS: BP 132/72; PULSE 80; TEMP 36.2; O2SAT 98; BMI 28.5
--- NOTE | 2023-08-17 12:38 | AM.OFFWIN_ITS ---
Intake Vital Signs 08/17/23 12:38 Height 5 ft 5 in Weight 171 lb BMI 28.5 BP 132/72 Blood Pressure Location Lt brachial Position Sitting Pulse 80 Pulse Source Pulse Oximeter Temp 97.2 F Temp Source Temporal Artery Scan Pulse Oximetry (%) 98 Oxygen Delivery Method Room Air Intake Visit Reasons: EP rash in groin area Intake Note: pt is here today for rash in groin area started 4 days ago Patient Tobacco Use Status: Never used Tobacco Allergies No Known Allergies Allergy (Verified 08/17/23 12:40) Do you need a note to return to daycare/school/sports/work: No HPI HPI Comments History of Present Illness Details 62 y/o male patient who presents to walk in clinic with c/o Rash on his penile head x 4 days. Reports that the rash is very itchy, burning with white discharge. Reports getting this rash frequently for the past 10 years now. Usually he gets a cream and goes away. Pt is diabetic and uncircumcised. Pt is also on Jandiance. [facility] Medical History Alcoholism Allergic rhinitis BPH (benign prostatic hyperplasia) Diabetes mellitus Essential hypertension Mild asthma Mixed hyperlipidemia Neck pain Obese Physical exam Surgical History History of colonoscopy Family History Father History of alcohol abuse Mother Alive and well Social History (Updated 07/26/23 @ 08:26 by Kaitlynn Lima MD) Housing: House Alcohol intake: current Alcohol intake frequency: 3 or more drinks per day Alcohol type: beer Patient Tobacco Use Status: Never used Tobacco e-Cigarette/Vaping Use: Never Used Second Hand Smoke Exposure: No service: No Current occupational status: employed Current occupation: rt handed Current occupational exposures/hazards: No Cognitive needs: No Hearing needs: No Vision needs: Yes Review of Systems Const All systems reviewed & are unremarkable except as noted in HPI and below Physical Exam Vital Signs: Last Vital Signs Temp 97.2 F 08/17/23 12:38 Pulse 80 08/17/23 12:38 BP 132/72 08/17/23 12:38 Pulse Ox 98 08/17/23 12:38 Oxygen Delivery Method Room Air 05/02/24 12:38 BMI result Body Mass Index 28.5 Const General: no acute distress Orientation/consciousness: patient oriented x3 Limitations: language barrier Penis: uncircumcised, erythematous and other (white thick discharge from fore- skin penile head, redness ) Meatus: no meatla discharge and Erythema at meatus Neuro General: patient oriented x3, gait normal and moves all extremities Psych Speech and movement: Normal speech and movement present Assessment & Plan Assessment & Plan (1) Acute balanitis due to infection: Code(s): N48.1 - Balanitis Plan: - Maintain good hygiene around fore-skin - Probably medication related (Jardiance) - Have a good control of BS Medications: New clotrimazole 1% 1 appl topical BID 2 weeks 45 grams 0RF N48.1 - Balanitis Coding Level of Care Code Est Pt Level 3 (75126) Diagnoses Acute balanitis due to infection N48.1 Time Spent (min) 15
== END 2023-08-17 14:07 | disposition home or self-care (01) ==
PROVIDERS: PCP Internal Medicine; Visit Provider Nurse Practitioner Family
DX: N48.1 Balanitis (principal)
CPT/HCPCS: 99213

== ENCOUNTER 2023-11-15 08:26 | Outpatient (AMB) | payer OTHER, SELFPAY ==
--- NOTE | 2023-11-15 08:30 | MHC.PC.OV ---
Vital Signs 11/15/23 08:32 Height 5 ft 5 in Weight 175 lb BMI 29.1 BP 130/70 Blood Pressure Location Lt brachial Position Sitting Intake Visit Reasons: Annual exam Intake Note: Patient here for an annual physical exam Marbleizer Required: No Accompanied by: Self / Same As Patient Allergies No Known Allergies Allergy (Verified 11/15/23 08:50) Medication List - Last Reconciled 11/15/23 by Kaitlynn Lima MD amitriptyline 10 mg PO BEDTIME 90 days atorvastatin 20 mg PO BEDTIME 90 days cholecalciferol (vitamin D3) 25 mcg PO DAILY 90 days clotrimazole 1% 1 appl topical BID 2 weeks empagliflozin (Jardiance) 25 mg PO DAILY 90 days lisinopril 30 mg PO DAILY 90 days metformin 1,000 mg PO BID 90 days Tobacco use date assessed: 07/26/23 Dental Screening Dental Screen Date: 07/26/23 HPI HPI Comments History of Present Illness Details This is a 62-year-old male with diabetes mellitus type 2, alcoholism and 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 A1c elevated. He has been out of his Jardiance for over 2 weeks due to being not able to afford it at the moment. He drinks alcohol every day about 3-4 beers plus a nip of firebal on occasions and was advised to cut down to 6-7 beers per week. Was counseled to be referred to [facility] but he declines it at the moment. 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 Last colonoscopy was 2010 and was referred through open access in July but has not heard back from them. I will refer him again. Last diabetic eye exam was a year ago and will be referred to Ophthalmology. l [facility] Medical History Physical exam Allergic rhinitis Mild asthma Neck pain Alcoholism Obese BPH (benign prostatic hyperplasia) Essential hypertension Mixed hyperlipidemia Diabetes mellitus Surgical History History of colonoscopy Family History (Updated 11/15/23 @ 08:53 by Kaitlynn Lima MD) Father History of alcohol abuse Mother Alive and well Diabetes mellitus Social History Housing: House Alcohol intake: current Alcohol intake frequency: 3 or more drinks per day Alcohol type: beer Patient Tobacco Use Status: Never used Tobacco e-Cigarette/Vaping Use: Never Used Second Hand Smoke Exposure: No service: No Current occupational status: employed Current occupation: rt handed Current occupational exposures/hazards: No Cognitive needs: No Hearing needs: No Vision needs: Yes Questionnaire Thrive Questionnaire Date Thrive assessed: 07/26/23 AUDIT C Alcohol Use Questionnaire (AUDIT-C) 1. How often do you have a drink containing alcohol?: 4 or more times a week 2. How many drinks containing alcohol do you have on a typical day when you are drinking?: 3 or 4 3. How often do you have six or more drinks on one occasion?: Never Total Score: 5 Score Reviewed/Action Taken: Yes (Offer comprehensive care center referral and decline) ROCHELLE-7 AMB Questionnaire ROCHELLE-7 Date ROCHELLE - 7 assessed: 07/26/23 Source: Developed by Drs. Carlos Rider, Ruba Harrison, Dereck Clarke and colleagues, with an educational yogi from [employer]. Review of Systems Const All systems reviewed & are unremarkable except as noted in HPI and below Card Denies chest pain at rest, Denies chest pain with activity, Denies edema, Denies irregular heart rhythm, Denies claudication, Denies dyspnea, Denies dyspnea on exertion, Denies orthopnea, Denies paroxysmal nocturnal dyspnea and Denies slow heart rate Resp Denies cough, Denies dyspnea and Denies dyspnea on exertion GI Denies abdominal pain, Denies change in bowel habits, Denies excessive flatus, Denies nausea and Denies vomiting Denies urinary hesitancy, Denies urinary incontinence and Denies urinary urgency Musc Denies abnormal gait, Denies atrophy, Denies deformity and Denies limited range of motion Skin/Breast Denies bleeding lesions, Denies changing lesions and Denies rash Neuro Denies abnormal gait, Denies behavioral changes and Denies lack of coordination Psych Denies behavioral changes Physical exam (Primary Care) Vital Signs: Last Vital Signs BP 130/70 11/15/23 08:32 BMI result Body Mass Index 29.1 Tobacco/Smoking Status: Tobacco use Status Tobacco use date assessed 07/26/23 11/15/23 08:31 Patient Tobacco Use Status Never used Tobacco 11/15/23 08:31 e-Cigarette/Vaping Use Never Used 11/15/23 08:31 Thrive Assessment: Date of Thrive Assessment Date Thrive assessed 07/26/23 11/15/23 08:31 HENLA Head: Yes normal to inspection, Yes normocephalic and Yes atraumatic Ears: external ears normal Eyes General: appearance normal, both eyes and all related structures Eyelids: Yes eyelids normal Conjunctivae: conjunctivae normal Neck Neck: Yes normal visual inspection and Yes supple Resp Effort & Inspection: normal respiratory effort Auscultation: clear to auscultation bilaterally Cardio Jugular venous distension: no JVD Rate: regular rate Rhythm: regular rhythm Heart sounds: S1 normal heart sound present and S2 normal heart sound present GI Inspection: Yes normal to inspection Palpation (GI): Soft to palpation and nontender Auscultation: normal bowel sounds Skin General skin exam: no rashes or lesions noted Neuro General: no focal motor deficits Extrem General: Yes full ROM Psych Appearance: grossly normal Results AMB Hemoglobin A1c AMB Hemoglobin A1c 7.9 % Last Edit by ALBERTO Duarte on 11/15/23 08:43 Results Reviewed Results Reviewed: Laboratory Last Values Hgb A1c (Clinic) 7.9 % (4.0-6.0) H 11/15/23 08:36 Assessment and Plan Assessment & Plan (1) Physical exam: Code(s): Z00.00 - Encounter for general adult medical examination without abnormal findings Plan: Repeat in a year. (2) 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(s): F10.982 - Alcohol use, unspecified with alcohol-induced sleep disorder Plan: Cut down on drinking alcohol. (3) Alcoholism: Code(s): F10.20 - Alcohol dependence, uncomplicated Plan: Cut down on drinking alcohol. 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 A1c goal is equal or less than 7%. Continue diabetic eye exam per year. Orders: Orders Vitamin D 25-OH Total Today E55.9 - Vitamin D deficiency, unspecified Microalbumin, Random (w Creat) Today E11.9 - Type 2 diabetes mellitus without complications AMB Hemoglobin A1c Today E11.9 - Type 2 diabetes mellitus without complications Lipid Panel Today E78.5 - Hyperlipidemia, unspecified Comprehensive [place]. 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
[2023-11-15 08:32] VITALS: BP 130/70; BMI 29.1
== END 2023-11-15 09:01 | disposition home or self-care (01) ==
PROVIDERS: PCP Internal Medicine; Visit Provider Internal Medicine
DX: Z00.00 Encounter for general adult medical examination without abnormal findings (principal); F10.982 Alcohol use, unspecified with alcohol-induced sleep disorder; E11.9 Type 2 diabetes mellitus without complications
CPT/HCPCS: 83036; 99396

== ENCOUNTER 2024-04-03 06:04 | Outpatient (REF) | payer OTHER, SELFPAY ==
[2024-04-03 07:31] LABS: Creatinine Urine 95.92 mg/dL; Microalbum/Creatinine Ratio Ur 30.2 ug/mg cr (<30)
[2024-04-03 07:49] LABS: Alanine Aminotransferase 50 U/L (0-40); Albumin Level 3.8 g/dL (3.5-5.0); Alkaline Phosphatase 88 U/L (39-117); Anion Gap 9 (12-20); Aspartate Amino Transferase 31 U/L (5-37); Bilirubin Total 0.4 mg/dL (0.0-1.0); Blood Urea Nitrogen 11 mg/dL (9-16); Carbon Dioxide 29 mmol/L (22-29); Chloride 104 mmol/L (96-108); Cholesterol 152 mg/dL (<200); Estimated Glomerular Filt Rate > 60; Glucose Fasting 285 mg/dL (60-99); HDL Cholesterol 56 mg/dL (>40); LDL Cholesterol Calculated 78 mg/dL (<100); Potassium 3.9 mmol/L (3.3-5.1); Sodium 138 mmol/L (135-145); Total Protein 6.5 g/dL (6.5-8.0); Triglycerides 93 mg/dL (<150)
[2024-04-03 07:54] LABS: Vitamin D 25-OH Total 20.5 ng/mL (>30)
[2024-04-09 14:49] LABS: Vitamin B1 11 nmol/L (8-30)
== END 2024-04-03 06:05 | disposition home or self-care (01) ==
LOC: HO.LAB 06:04
PROVIDERS: PCP Internal Medicine; Visit Provider Internal Medicine
DX: E78.5 Hyperlipidemia, unspecified (principal); E11.9 Type 2 diabetes mellitus without complications; E55.9 Vitamin D deficiency, unspecified; F10.20 Alcohol dependence, uncomplicated
CPT/HCPCS: 36415; 80053; 80061; 82043; 82306; 82570; 84425

== ENCOUNTER 2024-04-04 16:08 | Outpatient (AMB) | payer OTHER, SELFPAY ==
--- NOTE | 2024-04-04 16:19 | A.OFFPC_ITS ---
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 Required: No Accompanied by: Self / Same As Patient Allergies No Known Allergies Allergy (Verified 04/04/24 16:36) Medication List - Last Reconciled 04/04/24 by Kaitlynn Lima MD amitriptyline 10 mg PO BEDTIME 90 days atorvastatin 20 mg PO BEDTIME 90 days bisacodyl (Dulcolax (bisacodyl)) 20 mg (4 x 5 mg) PO ONCE 1 day cholecalciferol (vitamin D3) 25 mcg PO DAILY 90 days clotrimazole 1% 1 appl topical BID 2 weeks empagliflozin (Jardiance) 25 mg PO DAILY 90 days lisinopril 30 mg PO DAILY 90 days metformin 1,000 mg PO BID 90 days polyethylene glycol 3350 (Miralax) 238 grams PO ONCE 1 day Tobacco use date assessed: 07/26/23 Fall risk assessment: No Falls in past year Last assessed Fall Risk: 04/04/24 Dental Screening Dental Screen Date: 04/04/24 Did you have a dental visit in the last 12 months?: No Did you have a dental problem in the last 6 months where you did not have access to dental care?: No Was dental information given to patient?: Patient has dentist HPI HPI Comments History of Present Illness Details The patient is a 63-year-old male presenting with concerns over the management of Type 2 Diabetes Mellitus, Hypertension, Hyperlipidemia, and Microalbuminuria. The patient's diabetes control has deteriorated, with the most recent Hemoglobin A1c rising to 10 from a previously stable 7.9, and blood glucose level recorded at 285 mg/dL. The patient was previously on Metformin and Jardiance; however, Jardiance was not approved by his plan or was too costly. A history of essential hypertension is controlled on Lisinopril 30 mg, although recent interaction suggests possible lapses. The patient has documented hyperlipidemia, with an LDL cholesterol level increase from 54 mg/dL in December to 78 mg/dL. Attention to Vitamin D deficiency was noted with recent values down to 20.5 ng/mL, below the target of 30 ng/mL. The patient reports occasional elevation in liver enzymes, possibly due to multifactorial etiologies like alcohol intake or non-alcoholic fatty liver disease. Current interventions have included Metformin, Atorvastatin, and Lisinopril, with a recent recommendation to add Pioglitazone due to financial constraints with Jardiance. [facility] Medical History Physical exam Allergic rhinitis Mild asthma Neck pain Alcoholism Obese BPH (benign prostatic hyperplasia) Essential hypertension Mixed hyperlipidemia Diabetes mellitus Surgical History History of colonoscopy Family History Father History of alcohol abuse Mother Alive and well Diabetes mellitus Social History Housing: House Alcohol intake: current Alcohol intake frequency: 3 or more drinks per day Alcohol type: beer Patient Tobacco Use Status: Never used Tobacco e-Cigarette/Vaping Use: Never Used Second Hand Smoke Exposure: No service: No Current occupational status: employed Current occupation: rt handed Current occupational exposures/hazards: No Cognitive needs: No Hearing needs: No Vision needs: Yes Questionnaire Thrive Questionnaire Date Thrive assessed: 07/26/23 ROCHELLE-7 AMB Questionnaire ROCHELLE-7 Date ROCHELLE - 7 assessed: 04/04/24 Feeling nervous, anxious, or on edge: 0 = Not at all Not being able to stop or control worryin = Not at all Worrying too much about different things: 0 = Not at all Trouble relaxin = Not at all Being so restless that it is hard to sit still: 0 = Not at all Becoming easily annoyed or irritable: 0 = Not at all Feeling afraid as if something awful might happen: 0 = Not at all Total ROCHELLE-7 score (0-4 normal; 5-9 mild; 10-14 moderate; 15-21 severe): 0 Source: Developed by Drs. Carlos Rider, Ruba Harrison, Dereck Clarke and colleagues, with an educational yogi from [employer]. ROCHELLE-7 Assessment Billing ROCHELLE-7 Assessment Tool: ROCHELLE-7 Assessment 62307 Review of Systems Const Details: - Endocrine: Reports elevated blood glucose. - Gastrointestinal: Denies gastrointestinal symptoms. - Musculoskeletal: Denies muscle or joint aches. Physical exam (Primary Care) Vital Signs: Last Vital Signs BP 122/70 04/04/24 16:22 BMI result Body Mass Index 28.8 Tobacco/Smoking Status: Tobacco use Status Tobacco use date assessed 07/26/23 04/04/24 16:21 Patient Tobacco Use Status Never used Tobacco 04/04/24 16:21 e-Cigarette/Vaping Use Never Used 04/04/24 16:21 Thrive Assessment: Date of Thrive Assessment Date Thrive assessed 07/26/23 04/04/24 16:21 Const Other: General: No confusion Respiratory: Normal respiratory effort, clear to auscultation bilaterally Cardiovascular: No jugular venous distension, regular rate, regular rhythm, S1 normal heart sound present and S2 normal heart sound present Extremities: Full ROM Coding Level of Care Code Est Pt Level 4 (27338) Complex EM visit Add On G2211 Diagnoses Type 2 diabetes mellitus without complication, without long-term current use of insulin E11.9 Diabetes mellitus type: type 2 Diabetes mellitus group home insulin use: without group home use Diabetes mellitus complication status: without complication Essential hypertension I10 Mixed hyperlipidemia E78.2 Alcoholism F10.20 Hypovitaminosis D E55.9 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 Additional Codes ROCHELLE-7 Assessment Billing - ROCHELLE-7 Assessment Tool: ROCHELLE-7 Assessment 46175 ([id number]) Time Spent (min) 24 Assessment & Plan Assessment & Plan (1) Diabetes mellitus: Code(s): E11.9 - Type 2 diabetes mellitus without complications Category: Medical Qualifiers: Diabetes mellitus type: type 2 Diabetes mellitus group home insulin use: without group home use Diabetes mellitus complication status: without complication Qualified Code(s): E11.9 - Type 2 diabetes mellitus without complications (2) Essential hypertension: Code(s): I10 - Essential (primary) hypertension Category: Medical (3) Mixed hyperlipidemia: Code(s): E78.2 - Mixed hyperlipidemia Category: Medical (4) Alcoholism: Code(s): F10.20 - Alcohol dependence, uncomplicated Category: Medical (5) Hypovitaminosis D: Code(s): E55.9 - Vitamin D deficiency, unspecified Category: Medical (6) 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(s): F10.982 - Alcohol use, unspecified with alcohol-induced sleep disorder Category: Medical Plan - Modify diabetic management: Start Pioglitazone to improve glycemic control in light of unaffordability of Jardiance. - Adjust lipid management: Increase dosage of Atorvastatin to manage elevated LDL levels. - Continue antihypertensive management with Lisinopril 30 mg daily. - Address Vitamin D deficiency by prescribing supplemental Vitamin D. - Monitor liver enzymes periodically, considering the underlying factors such as alcohol intake and possible non-alcoholic fatty liver disease. - Follow-up in four months to review management effectiveness and adjust treatment plan if necessary. Patient was informed and verbally consented to the use of an ambient scribe for clinic note documentation during this visit. During the discussion, the importance of controlling blood glucose levels was emphasized. I discussed the significance of maintaining an LDL level within the target range and addressed how increasing Atorvastatin could aid in achieving this goal. The high cost of Jardiance was acknowledged, and Pioglitazone was considered a cost-effective alternative for diabetes management. Vitamin D supplementation was also recommended to raise levels closer to normal. We talked about the need for consistent medication adherence and periodic liver enzyme monitoring due to variable elevations potentially related to alcohol consumption and hepatic steatosis. I encouraged the patient to continue follow-up diligently to ensure coordinated chronic disease management. We agreed to meet again in four months, with interim communication advised if any issues with medication availability or new symptoms arise. Orders: Orders AMB Hemoglobin A1c 04/04/24 E11.9 - Type 2 diabetes mellitus without complications Lipid Panel 4 Months E78.5 - Hyperlipidemia, unspecified Microalbumin, Random (w Creat) 4 Months R80.9 - Proteinuria, unspecified Vitamin D 25-OH Total 4 Months E55.9 - Vitamin D deficiency, unspecified Comprehensive [place]. Panel Fast 4 Months I10 - Essential (primary) hypertension Medications: New pioglitazone 15 mg PO DAILY 90 tabs 1RF 90 days atorvastatin 40 mg PO BEDTIME 90 tabs 1RF 90 days Refilled lisinopril 30 mg PO DAILY 90 tabs 3RF 90 days I10 - Essential (primary) hyperte nsion metformin 1,000 mg PO BID 180 tabs 3RF 90 days E11.9 - Type 2 diabetes mellitus without complications cholecalciferol (vitamin D3) 25 mcg PO DAILY 90 caps 1RF 90 days E55.9 - Vitamin D deficiency, unspecified amitriptyline 10 mg PO BEDTIME 90 tabs 0RF 90 days F10.982 - Alcohol use, unspecified with alcohol-induced sleep disorder Discontinued empagliflozin (Jardiance) Discontinued Reason: Patient Completed Course 25 mg PO DAILY 90 days 90 tabs 0RF E11.9 - Type 2 diabetes mellitus without complications atorvastatin Discontinued Reason: Patient Completed Course 20 mg PO BEDTIME 90 days 90 tabs 1RF E78.2 - Mixed hyperlipidemia Patient Instructions: - Start Pioglitazone as prescribed for blood sugar control. - Increase dosage of Atorvastatin as advised for cholesterol management. - Take Vitamin D supplements as prescribed. - Limit alcohol to decrease potential liver damage and improve overall health. - Continue monitoring blood pressure and blood sugar at home. - Schedule regular follow-up visits every four months or sooner if needed.
[2024-04-04 16:22] VITALS: BP 122/70; BMI 28.8
== END 2024-04-04 16:46 | disposition home or self-care (01) ==
PROVIDERS: PCP Internal Medicine; Visit Provider Internal Medicine
DX: E11.9 Type 2 diabetes mellitus without complications (principal); F10.982 Alcohol use, unspecified with alcohol-induced sleep disorder; E78.2 Mixed hyperlipidemia; I10 Essential (primary) hypertension; E55.9 Vitamin D deficiency, unspecified

== ENCOUNTER → 2024-04-04 16:08 | Outpatient (BNVA) | payer OTHER, SELFPAY | PROVIDERS: PCP Internal Medicine; Visit Provider Internal Medicine | DX: E11.9 Type 2 diabetes mellitus without complications (principal); I10 Essential (primary) hypertension; E78.2 Mixed hyperlipidemia; E55.9 Vitamin D deficiency, unspecified; F10.282 Alcohol dependence with alcohol-induced sleep disorder; Z79.899 Other long term (current) drug therapy | CPT/HCPCS: 96127 ==

== ENCOUNTER 2024-06-10 07:11 | Day surgery (SDC) | payer OTHER, SELFPAY ==
[2024-06-06 13:56] VITALS: BMI 28.8
[2024-06-10 07:14] VITALS: BMI 28.6
[2024-06-10 07:32] VITALS: BP 153/93; PULSE 76; RESP 16; TEMP 36.5; O2SAT 98
[2024-06-10] MEDS: Lactated Ringers 1,000 ML 80 ML IVCONT (07:40)
--- NOTE | 2024-06-10 07:45 | MHC.SHP ---
Pre-Procedural Eval Section A - 24 Hr Update-Section A only Date of Service: 06/10/24 The patient is an INPATIENT: No The patient has been examined within 24 hours of the surgical procedure. The History & Physical has been completed within 30 days and I have reviewed it.: No Section B - Complete if H&P > 30 days Chief Complaint: Colon cancer screening Relevant Family History (Specify if Yes): No Relevant Social History: None Present Medications: see Short Stay Collaborative assessment Medical History: Significant History (Alcoholism Allergic rhinitis BPH (benign prostatic hyperplasia) Diabetes mellitus Essential hypertension Mild asthma Mixed hyperlipidemia) History of Previous Operations: Relevant previous surgery/procedure and date(s) (History of colonoscopy) Allergies: Allergies Allergy/AdvReac Type Severity Reaction Status Date / Time No Known Allergies Allergy Verified 04/04/24 16:36 Review of Systems Sugical H&P ROS: Negative: Cardiovascular, Respiratory, Neurological and Gastrointestinal Exam Surgical H&P Exam: Normal: Heart, Normal: Lungs, Normal: Extremities and Normal: Abdomen Plan Diagnosis/Plan: Unchanged I have reviewed the history and physical and performed a pertinent physical examination on my patient. No changes have occurred unless specified. Time Spent With Patient Time: Total time managing care of this patient today ____ minutes.
[2024-06-10 07:46] LABS: Glucose, Whole Blood 213 mg/dL (60-115)
--- NOTE | 2024-06-10 08:29 | HO.ANESPROP2 ---
[facility] Active Problems Active Problems: All Active Problems (Updated 06/06/24 @ 13:52 by Zahraa Smalls RN) 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 (Acute) Hypovitaminosis D (Acute) Microalbuminuria (Acute) Physical exam (Acute) Screening for hypothyroidism (Acute) Cough (Acute) Shortness of breath (Acute) Osteoarthritis of left knee (Acute) Left ankle pain (Acute) Knee effusion, left (Acute) Left knee injury (Acute) Screen for colon cancer (Acute) Allergic rhinitis (Acute) Mild asthma (Acute) Neck pain (Acute) Alcoholism (Acute) Obese (Acute) BPH (benign prostatic hyperplasia) (Acute) Essential hypertension (Acute) Mixed hyperlipidemia (Acute) Diabetes mellitus (Acute) Past Medical History Medical History (Updated 06/06/24 @ 13:52 by Zahraa Smalls RN) Osteoarthritis Allergic rhinitis Mild asthma Neck pain Alcoholism Obese BPH (benign prostatic hyperplasia) Essential hypertension Mixed hyperlipidemia Diabetes mellitus Family History Family History Father History of alcohol abuse Mother Alive and well Diabetes mellitus Family history of problems with anesthesia: No Surgical History Surgical History (Updated 06/06/24 @ 13:58 by Zahraa Smalls RN) Hx of hand surgery Hx of left inguinal hernia repair History of colonoscopy History of Problems with Anesthesia: No Social History Social History Housing: House Are you a primary child care giver to a significant other at home: No Do you presently have visiting nurse or other home services: No Alcohol intake: current Alcohol intake frequency: 0-2 drinks per day Alcohol type: beer Patient Tobacco Use Status: Never used Tobacco e-Cigarette/Vaping Use: Never Used Second Hand Smoke Exposure: No Use of substances other than those prescribed or required for medical reasons: No Have you been hit, kicked, punched, or otherwise hurt by someone within the past year? If so, by whom?: No Are you DNR?: No Advance Directives: No Advance Directives Information Provided: Yes Advance Directives on File: No Recently lost weight without trying: No Eating poorly because of decreased appetite: No Nutrition Risks: No Nutritional Risk Poor oral hygiene: No service: No Current occupational status: employed Current occupation: rt handed Current occupational exposures/hazards: No Cognitive needs: No Hearing needs: No Vision needs: Yes Meds Allergies Allergy/AdvReac Type Severity Reaction Status Date / Time No Known Allergies Allergy Verified 04/04/24 16:36 Active Medications: Current Medications Lactated Ringer's (Lr) 1,000 mls @ 80 mls/hr IVCONT .[id number] ELENA Last Admin: 06/10/24 07:40 Dose: 80 mls/hr Naloxone HCl (Naloxone Hcl 0.4 Mg/Ml Vial) 0.04 mg IVPUSH Q5M PRN PRN Reason: Excessive sedation or RR < 8 Exam Height,Weight and Vital Signs: Height 5 ft 5 in Weight 78 kg Last Vital Signs Temp 97.7 F 06/10/24 07:32 Pulse 76 06/10/24 07:32 Resp 16 06/10/24 07:32 BP 153/93 H 06/10/24 07:32 Pulse Ox 98 06/10/24 07:32 O2 Del Method Room Air 06/10/24 07:32 Pertinent Lab Results Pertinent Lab Results: Laboratory Tests 06/10/24 07:43 POC Glucose 213 H Airway Mallampati Class: II TM Dist: >3cm Neck ROM: Full Denture: Upper and Lower Heart: rrr Lungs: cta Assessment and Plan Final Anesthetic Review Family History of Problems with Anesthesia: No History of Problems with Anesthesia: No NPO: Yes ASA Class: III Final Preanesthetic Review: No Changes in Pt Med Stat, Meds/Allgs Chart Reviewed and Consent Obtained/Reviewed Patient Risk: Low Procedure Risk: Low Anesthetic Plan Anesthetic Plan: MAC: Disposition: Standard PACU
--- NOTE | 2024-06-10 08:46 | HO.OPN-COLON ---
Colonoscopy Operative Note Operative Note Date of Service: 06/10/24 Narrative: COLONOSCOPY TILL CECUM Pre-op diagnosis: Colon cancer screening (2nd colonoscopy). Post-op diagnosis:? Diverticulosis, hemorrhoids Endoscopist:? Vi Fernandez MD Anesthesia:?MAC Consent: Indications for the procedure and potential complications of bleeding, perforation, reaction to medications and missed diagnosis were discussed with the patient and informed consent was obtained. Instrument: Olympus PCF H 190 L variable stiffness pediatric colonoscope Monitoring: Vital signs and clinical assessment, intermittent blood pressure monitoring, continuous EKG monitoring, Pulse oximetry and Carbon Dioxide monitoring were done throughout the procedure. Please see anesthesia flowsheet. Colon withdrawl time was 11 minutes. Procedure: The patient was placed in the left lateral decubitis position and pre-procedure medications were administered. After a digital rectal examination of the ano-rectum, the video colonoscope was inserted into the rectum and advanced through the colon to the cecum. The colonoscope was slowly withdrawn in a retrograde panoramic fashion and the colon mucosa was carefully examined including a retroflexed view of the rectum. Findings and interventions are described below. Procedure Difficulty: without difficulty Findings: Terminal Ileum: Not evaluated Cecum: Normal Ascending Colon: Normal Transverse Colon: Normal Descending Colon: Moderate diverticulosis Sigmoid Colon: Moderate diverticulosis Rectum: Normal Ano-rectum: Small internal hemorrhoids Colon preparation: Excellent after some irrigation. [place] Bowel Preparation Scale Right colon; 3 Transverse colon: 3 Left colon; 3 (0 = Unprepared colon segment with mucosa not seen due to solid stool that cannot be cleared. 1 = Portion of mucosa of the colon segment seen, but other areas of the colon segment not well seen due to staining, residual stool and/or opaque liquid. 2 = Minor amount of residual staining, small fragments of stool and/or opaque liquid, but mucosa of colon segment seen well. 3 = Entire mucosa of colon segment seen well with no residual staining, small fragments of stool or opaque liquid) Impression and Post Procedure Diagnosis: Colonoscopy Findings: No polyps were detected Moderate diverticulosis seen in the left colon Small hemorrhoids on retroflexed exam. Plan: Repeat Colonoscopy in 10 years. Relevant handouts were given and the discharge area. Patient was placed on the colonoscopy recall list for repeat colonoscopy in 10 years.
[2024-06-10 08:47] VITALS: BP 137/84; PULSE 84; RESP 16; TEMP 36.4; O2SAT 97
[2024-06-10 09:02] VITALS: BP 131/81; PULSE 70; RESP 16; TEMP 36.4; O2SAT 98
--- NOTE | 2024-06-10 10:21 | PC.NURSE ---
all discharge instructions completed with medical interpeter.
== END 2024-06-10 09:32 | disposition home or self-care (01) ==
PROVIDERS: PCP Internal Medicine; Visit Provider Internal Medicine Gastroenterology
PROC: 0DJD8ZZ Inspection of Lower Intestinal Tract, Via Natural or Artificial Opening Endoscopic (ICD-10-PCS; CPT 45378; principal; 2024-06-10 08:30)
DX: Z12.11 Encounter for screening for malignant neoplasm of colon (principal); K57.30 Diverticulosis of large intestine without perforation or abscess without bleeding; K64.8 Other hemorrhoids; I10 Essential (primary) hypertension; E78.2 Mixed hyperlipidemia; E11.9 Type 2 diabetes mellitus without complications; J45.909 Unspecified asthma, uncomplicated; F10.20 Alcohol dependence, uncomplicated; N40.0 Benign prostatic hyperplasia without lower urinary tract symptoms; E66.9 Obesity, unspecified; Z68.30 Body mass index [BMI] 30.0-30.9, adult; Z79.84 Long term (current) use of oral hypoglycemic drugs; Z79.899 Other long term (current) drug therapy; Z98.890 Other specified postprocedural states
CPT/HCPCS: 45378; 82947; J2003; J2704

== ENCOUNTER → 2024-06-10 07:11 | Outpatient (BNV) | payer OTHER, SELFPAY | PROVIDERS: PCP Internal Medicine; Visit Provider Internal Medicine Gastroenterology | DX: Z12.11 Encounter for screening for malignant neoplasm of colon (principal); K57.90 Diverticulosis of intestine, part unspecified, without perforation or abscess without bleeding; K64.8 Other hemorrhoids | CPT/HCPCS: 45378 ==

== ENCOUNTER 2024-08-27 15:49 | Outpatient (AMB) | payer OTHER, SELFPAY ==
--- NOTE | 2024-08-27 16:05 | MHC.PC.OV ---
Vital Signs 08/27/24 16:08 Height 5 ft 5 in Weight 173 lb BMI 28.8 BP 124/70 Blood Pressure Location Lt brachial Position Sitting Intake Visit Reasons: dm Intake Note: Patient here for a follow up [employer] Required: No Accompanied by: Self / Same As Patient Allergies No Known Allergies Allergy (Verified 08/27/24 16:46) Medication List - Last Reconciled 08/27/24 by Kaitlynn Lima MD amitriptyline 10 mg PO BEDTIME 90 days atorvastatin 40 mg PO BEDTIME 90 days cholecalciferol (vitamin D3) 25 mcg PO DAILY 90 days clotrimazole 1% 1 appl topical BID 2 weeks lisinopril 30 mg PO DAILY 90 days metformin 1,000 mg PO BID 90 days pioglitazone 15 mg PO DAILY 90 days Tobacco use date assessed: 08/27/24 Fall risk assessment: No Falls in past year Last assessed Fall Risk: 08/27/24 Dental Screening Dental Screen Date: 08/27/24 Did you have a dental visit in the last 12 months?: No Did you have a dental problem in the last 6 months where you did not have access to dental care?: No Was dental information given to patient?: Patient has dentist HPI HPI Comments History of Present Illness Details The patient is a 63-year-old male presenting with Type 2 Diabetes Mellitus. His glycemic control has been suboptimal, as evidenced by a recent self-reported glycated hemoglobin (HbA1c) level of 9.2%. He has observed blood glucose fluctuations, notably a recent postprandial level of 240 mg/dL despite baseline readings around 70 mg/dL. Despite an absence of recent formal laboratory assessments, he adheres to a regimen of metformin 1000 mg twice daily and pioglitazone (Actos) 15 mg. He maintains good blood pressure control and denies any chest pain or respiratory difficulties. His lifestyle adjustments include reducing beer intake due to its sugar content. He has no history of allergy to medications. Blood pressure well controlled. On vitamin-D supplements for his low vitamin-D. Lipid panel will be order his LDL goal should be less than 70. 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 [facility] Medical History Osteoarthritis Allergic rhinitis Mild asthma Neck pain Alcoholism Obese BPH (benign prostatic hyperplasia) Essential hypertension Mixed hyperlipidemia Diabetes mellitus Surgical History Hx of hand surgery Hx of left inguinal hernia repair History of colonoscopy Family History Father History of alcohol abuse Mother Alive and well Diabetes mellitus Social History Housing: House Are you a primary account executive healthcare to a significant other at home: No Do you presently have visiting nurse or other home services: No Alcohol intake: current Alcohol intake frequency: 0-2 drinks per day Alcohol type: beer Patient Tobacco Use Status: Never used Tobacco e-Cigarette/Vaping Use: Never Used Second Hand Smoke Exposure: No service: No Current occupational status: employed Current occupation: rt handed Current occupational exposures/hazards: No Cognitive needs: No Hearing needs: No Vision needs: Yes Questionnaire PHQ-9 Over the last 2 weeks, how often have you been bothered by any of the following problems? 1. Little interest or pleasure in doing things: not at all 2. Feeling down, depressed, or hopeless: not at all 3. Trouble falling or staying asleep, or sleeping too much: not at all 4. Feeling tired or having little energy: not at all 5. Poor appetite or overeating: not at all 6. Feeling bad about yourself - or that you are a failure or have let yourself or your family down: not at all 7. Trouble concentrating on things, such as reading the newspaper or watching television: not at all 8. Moving or speaking so slowly that other people could have noticed. Or the opposite - being so fidgety or restless that you have been moving around a lot more than usual: not at all 9. Thoughts that you would be better off or of hurting yourself in some way: not at all Total score: 0 Depression Screening Interpretation: Negative Depression Screening Done: Yes 68859 - PHQ-9 Billing: Yes Source: Developed by Drs. Carols Rider, Ruba Harrison, Dereck Clarke and colleagues, with an educational yogi from [employer]. Thrive Questionnaire Date Thrive assessed: 08/27/24 I am a: Patient What is your living situation today?: I have a steady place to live Within the past 12 months, did the food you bought not last and you didn't have the money to get more?: Never true Within the past 12 months, did you worry whether your food would run out before you got money to buy more?: Never true Do you have trouble paying for medicines?: No Do you have trouble getting transportation to medical appointments?: No Do you have trouble paying your heating and electricity bill?: No Do you have trouble taking care of your child, family member or friend?: No Do you have trouble with day-to-day activities such as bathing, preparing meals, shopping, managing finances, etc.?: No Are you currently unemployed and looking for a job?: No Are you interested in more education?: No Please select the resources that you would like help with: None Currently or been in a relationship where the following occur: No concerns reported THRIVE Score: 0 AUDIT C Alcohol Use Questionnaire (AUDIT-C) 1. How often do you have a drink containing alcohol?: 4 or more times a week 2. How many drinks containing alcohol do you have on a typical day when you are drinking?: 3 or 4 3. How often do you have six or more drinks on one occasion?: Never Total Score: 5 Score Reviewed/Action Taken: Yes (Offer [facility] referral and decline) ROCHELLE-7 AMB Questionnaire ROCHELLE-7 Date ROCHELLE - 7 assessed: 08/27/24 Feeling nervous, anxious, or on edge: 0 = Not at all Not being able to stop or control worryin = Not at all Worrying too much about different things: 0 = Not at all Trouble relaxin = Not at all Being so restless that it is hard to sit still: 0 = Not at all Becoming easily annoyed or irritable: 0 = Not at all Feeling afraid as if something awful might happen: 0 = Not at all Total ROCHELLE-7 score (0-4 normal; 5-9 mild; 10-14 moderate; 15-21 severe): 0 Source: Developed by Drs. Carlos Rider, Ruba Harrison, Dereck Clarke and colleagues, with an educational yogi from [employer]. ROCHELLE-7 Assessment Billing ROCHELLE-7 Assessment Tool: ROCHELLE-7 Assessment 36052 Review of Systems Const All systems reviewed & are unremarkable except as noted in HPI and below Card Denies chest pain at rest, Denies chest pain with activity, Denies edema, Denies irregular heart rhythm, Denies claudication, Denies dyspnea, Denies dyspnea on exertion, Denies orthopnea, Denies paroxysmal nocturnal dyspnea and Denies slow heart rate Resp Denies cough, Denies dyspnea and Denies dyspnea on exertion GI Denies abdominal pain, Denies change in bowel habits, Denies excessive flatus, Denies nausea and Denies vomiting Denies urinary hesitancy, Denies urinary incontinence and Denies urinary urgency Musc Denies atrophy, Denies deformity and Denies limited range of motion Physical exam (Primary Care) Vital Signs: Last Vital Signs BP 124/70 08/27/24 16:08 BMI result Body Mass Index 28.8 Tobacco/Smoking Status: Tobacco use Status Tobacco use date assessed 08/27/24 08/27/24 16:15 Patient Tobacco Use Status Never used Tobacco 08/27/24 16:06 e-Cigarette/Vaping Use Never Used 08/27/24 16:06 PHQ-9: PHQ-9 Score PHQ-9: Total score 0 08/27/24 16:49 Depression Screening Interpretation: Negative Thrive Assessment: Date of Thrive Assessment Date Thrive assessed 08/27/24 08/27/24 16:15 Currently or been in a relationship where the following occur: No concerns reported Resp Effort & Inspection: normal respiratory effort Auscultation: clear to auscultation bilaterally Cardio Jugular venous distension: no JVD Rate: regular rate Rhythm: regular rhythm Heart sounds: S1 normal heart sound present and S2 normal heart sound present Extrem General: Yes full ROM Results AMB Hemoglobin A1c AMB Hemoglobin A1c 9.2 % Last Edit by ALBERTO Duarte on 08/27/24 16:16 Results Reviewed Results Reviewed: Laboratory Last Values Hgb A1c (Clinic) 9.2 % (4.0-6.0) H 08/27/24 16:04 Coding Level of Care Code Est Pt Level 4 (52844) Complex EM visit Add On G2211 Diagnoses Type 2 diabetes mellitus without complication, without long-term current use of insulin E11.9 Diabetes mellitus type: type 2 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 use Diabetes mellitus complication status: without complication Mixed hyperlipidemia E78.2 Essential hypertension I10 Hypovitaminosis D E55.9 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 Additional Codes ROCHELLE-7 Assessment Billing - ROCHELLE-7 Assessment Tool: ROCHELLE-7 Assessment 88145 ([id number]) PHQ-9 - 32396 - PHQ-9 Billing: Yes ([id number]) Time Spent (min) 22 Assessment & Plan Assessment & Plan (1) Diabetes mellitus: Code(s): E11.9 - Type 2 diabetes mellitus without complications Category: Medical Qualifiers: Diabetes mellitus type: type 2 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: without assisted use Diabetes mellitus complication status: without complication Qualified Code(s): E11.9 - Type 2 diabetes mellitus without complications (2) Mixed hyperlipidemia: Code(s): E78.2 - Mixed hyperlipidemia Category: Medical (3) Essential hypertension: Code(s): I10 - Essential (primary) hypertension Category: Medical (4) Hypovitaminosis D: Code(s): E55.9 - Vitamin D deficiency, unspecified Category: Medical (5) 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 I will arrange for laboratory testing in advance of the patient's subsequent physical examination, which will evaluate his glycemic status and lipid profile among other metabolic indicators. I will closely monitor the patient's response to any new prescriptions, emphasizing vigilance for urination-related side effects and addressing any financial or insurance-related constraints. The patient should remain observant of symptoms and update me as needed. Patient was informed and verbally consented to the use of an ambient scribe for clinic note documentation during this visit. During our discussion, I reviewed the patient?s current diabetes management plan and considered the addition of empagliflozin for enhanced glucose management and cardiovascular protection. I advised the patient on the necessity of undergoing lab work before the next scheduled physical examination and instructed him to monitor for potential adverse effects, particularly concerning urination. We discussed the possibility of insurance not covering empagliflozin and agreed to assess financial feasibility promptly. Follow-up was suggested to evaluate blood glucose control and determine if medication adjustments are warranted based on lab results. Orders: Orders Vitamin D 25-OH Total Today E55.9 - Vitamin D deficiency, unspecified Comprehensive [place]. Panel Fast Today E11.9 - Type 2 diabetes mellitus without complications AMB Hemoglobin A1c Today E11.9 - Type 2 diabetes mellitus without complications Lipid Panel Today E78.5 - Hyperlipidemia, unspecified Microalbumin, Random (w Creat) Today R80.9 - Proteinuria, unspecified Vitamin B12 and Folate Today E53.8 - Deficiency of other specified B group vitamins Medications: New empagliflozin (Jardiance) 10 mg PO DAILY 90 tabs 0RF 90 days Discontinued pioglitazone Discontinued Reason: Patient Completed Course 15 mg PO DAILY 90 days 90 tabs 1RF Patient Instructions: - Continue current medications, including metformin and pioglitazone. - Please monitor blood sugar regularly and report fluctuations. - Notify me immediately if you have any urinary issues or side effects from your medication. - Complete necessary lab work one week before your November 19 appointment. - Inform me if Jardiance is not covered by your health plan or if it is too expensive. - Report any sudden changes in your health promptly.
[2024-08-27 16:08] VITALS: BP 124/70; BMI 28.8
--- OUTSIDE RECORDS SUMMARY | 2024-08-27 16:29 | XMS_ITS | Clinical Summary ---
Author Organization [facility] Address [address] [address] Phone Care Team Providers Care Administrative Office Assistant Name Role Phone Kaitlynn Mora MD Primary Care Provider Allergies No known active allergies Medications metFORMIN (GLUCOPHAGE) 1000 MG tablet Take 1,000 mg by mouth 03/18/2022 Active atorvastatin (LIPITOR) 10 MG tablet Take 20 mg by mouth at bed time 01/26/2022 Active losartan (COZAAR) 25 MG tabletIndication s:Hypertension Take 1 tablet (25 mg total) by mouth 1 (one) time each day 90 tablet 11 06/20/2024 Active Active Problems Problem Noted Date Diagnosed Date Type 2 diabetes mellitus wit h diabetic chronic kidney disease 03/23/2023 Diabetes mellitus 04/14/2022 Essential (primary) hypertension 04/14/2022 Body mass index 40+ - severely obese 04/14/2022 Chronic kidney disease, stage 2 (mild) 2 Encounters Date Type Department Care Team Description 06/20/2024 Refill [facility] [address] [address] Carmenza Mejía [place] Hypertension (Primary Dx) from Last 3 Months Family History Relation Status Comments Father Mother Social History Tobacco Use Types Packs/Day Years Used Date Smoking Tobacco: Never Tobacco Cessation:Counseling Given: Not Answered Alcohol Use Standard Drinks/Week Comments Never 0 (1 standard drink = 0.6 oz pur e alcohol) Sex and Gender Information Value Date Recorded Sex Assigned at Not on file Legal Sex Male 8:20 AM EDT Gender Identity Not on file Sexual Orientation Not on file Last Filed Vital Signs Vital Sign Reading Time Taken Comments Blood Pressure 120/70 04/01/2024 1:12 PM EST Pulse 75 04/01/2024 1:12 PM EST Temperature - - Respiratory Rate - - Oxygen Saturation 96% 04/01/2024 1:12 PM EST Inhaled Oxygen Concentration - - Weight 79.8 kg (176 lb) 04/01/2024 1:12 PM EST Height - - Body Mass Index - - Plan of Treatment Upcoming Encounters Date Type Department Care Team (Late st Contact Info) Description 04/07/2025 1:30 PM EST Office Visit [facility] [address] [place] [address] [place] [address] Manuel Walsh MD [address] [facility] [address] [place] [address] Health Maintenance Due Date Last Done Comments Pneumococcal Vaccine: 50+ Years (1 of 2 - PCV) 11/21/1978 Colorectal Cancer Screening: Annual FOBT 11/21/2008 Colorectal Cancer Screening: Colonoscopy 11/21/2008 Colorectal Cancer Screening: Sigmoidoscopy 11/21/2008 Diabetes: Ophthalmology Exam 04/14/2022 Diabetes: Pedal Pulse Checked 04/14/2022 Diabetes: Sensory Foot Exam 04/14/2022 Diabetes: Visual Foot Exam 04/14/2022 Diabetes: Hemoglobin A1C 06/22/2023 023, 01/26/2022 Influenza Vaccine (Season Ended) 2024 Hepatitis B Vaccine Aged Out No longe r eligible based on patient's age to complete this topic Procedures Procedure Name Priority Date/Time Associated Diagnosis Comments EXT RESULT ENTRY Routine 03/23/2023 from Last 3 Months or Most Recently Relevant to Health Maintenance Results * (ABNORMAL) EXT RESULT ENTRY (03/23/2023) Hemoglobin A1C 9.2(A) 4.0 - 6.0 03/23/2023 us Historical Provider LAB BLOOD ORDERABLES Yamile l Result from Last 3 Months or Most Recently Relevant to Health Maintenance Insurance [place] Care Teams Administrative Office Assistant Relationship Specialty Start Date End Date Kaitlynn Mora MD [address] [place] PCP - General Internal Medicine 02/01/22
== END 2024-08-27 16:52 | disposition home or self-care (01) ==
LOC: HO.HMCH 15:49
PROVIDERS: PCP Internal Medicine; Visit Provider Internal Medicine
DX: E11.69 Type 2 diabetes mellitus with other specified complication (principal); F10.982 Alcohol use, unspecified with alcohol-induced sleep disorder; E78.2 Mixed hyperlipidemia; I10 Essential (primary) hypertension; E55.9 Vitamin D deficiency, unspecified

== ENCOUNTER → 2024-08-27 15:49 | Outpatient (BNVA) | payer OTHER, SELFPAY | PROVIDERS: PCP Internal Medicine; Visit Provider Internal Medicine | DX: E11.9 Type 2 diabetes mellitus without complications (principal); E78.2 Mixed hyperlipidemia; I10 Essential (primary) hypertension; E55.9 Vitamin D deficiency, unspecified; F10.982 Alcohol use, unspecified with alcohol-induced sleep disorder | CPT/HCPCS: 83036; 96127 ==

== ENCOUNTER 2024-11-19 08:43 | Outpatient (AMB) | payer OTHER, SELFPAY ==
--- OUTSIDE RECORDS SUMMARY | 2024-11-19 08:55 | XMS_ITS | Clinical Summary ---
Author Organization [facility] Address [address] [address] Phone Care Team Providers Care Install Technician Name Role Phone Kaitlynn Mora MD Primary Care Provider [phone] Allergies No known active allergies Medications metFORMIN [...] Chronic kidney disease, stage 2 (mild) 2 Family History Relation Status Comments Father Mother [...] Visit [facility] [address] [place] [address] Manuel Walsh MD [address] [facility] [address] [place] [address] Health Maintenance Due Date Last Done Comments Pneumococcal Vaccine: 50+ Years (1 of 2 - PCV) 11/21/1978 Colorectal Cancer Screening: Annual FOBT 11/21/2008 Colorectal Cancer Screening: Colonoscopy 11/21/2008 Colorectal Cancer Screening: Sigmoidoscopy 11/21/2008 Diabetes: Ophthalmology Exam 04/14/2022 Diabetes: Pedal Pulse Checked 04/14/2022 Diabetes: Sensory Foot Exam 04/14/2022 Diabetes: Visual Foot Exam 04/14/2022 Diabetes: Hemoglobin A1C 06/22/2023 023, 01/26/2022 Influenza Vaccine (#1) 2024 Hepatitis B Vaccine Aged Out No [...] Most Recently Relevant to Health Maintenance Insurance [facility] Care Teams Install Technician Relationship Specialty Start Date End Date Kaitlynn Mora MD [address] [place] PCP - General Internal Medicine 02/01/22
--- OUTSIDE RECORDS SUMMARY | 2024-11-19 08:55 | XMS_ITS | Patient Health Record ---
Author Organization [facility] Address [address] [place] [address] Care Team Providers Care Risk And Insurance Consultant Name Role Phone Kaitlynn Mora Primary Care Provider Unavailab Carlos Mishra Unavailable [phone] Reason For Referral No Information Medications Medication SIG (Take, Route, Frequency, Duration) Notes Start Date End Date Status traZODone HCl 50 MG 1 TABLET AT BEDTIME NEEDED ONCE A DAY ORALLY 30 DAY(S) Oral for 30 Active metFORMIN HCl 1000 MG TAKE 1 TABLET BY M OUTH TWICE A DAY WITH MEALS Oral for 30 Active Atorvastatin Calcium 40 MG TAKE 1 TABLET BY MOUTH ONCE A DAY Oral for 30 Active Flovent HFA 110 MCG/ACT 1 puff Inhalatio n Twice a day Active Immunizations Vaccine Route Administration Date Status Comme nts Influenza Unknown 02/16/2016 Administered Social History Tobacco Use: Social History Observation Description Date Details (start date - stop date) Never Smoker NA - NA Tobacco Use/Smoking Question Answer Notes Patient is a nonsmoker Alcohol Screen Question Answer Notes Did you have a drink contain ing alcohol in the past year? Yes How often did you have a dri nk containing alcohol in the past year? 4 or more times a week (4 points) How many drinks did you have on a typical day when you were drinking in the past year? 1 or 2 drinks (0 point) How often did you have 6 or more drinks on one occasion in the past year? Never (0 point) Points 4 Interpretation Positive Section Notes: Nonsmoker; drinks alcohol fa irly regularly Problems Problem Type SNOMED Code ICD Code Onset Dates Problem Status W/U Status Risk Notes Problem [id number] Encounter for screening for malignant neoplasm of colon (Z12.11) Active confirmed Problem [id number] Preprocedural examination (Z01.818) Active confirmed Plan Of Treatment No Information Insurance Providers Payer Name Payer Address Payer Phone Subscriber Number Group Number Insured Name Patient Relationship to Insured Coverage Start Date Coverage End Date [employer] [address] [place] [phone] [id number] MESHA GUTIERREZ Self - patient is the insured Medical (General) History Medical History History ICD Code Hyperlipidemia GERD Asthma NIDDM BPH Negative colonoscopy in 05/[address] 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
--- NOTE | 2024-11-19 09:14 | MHC.PC.OV ---
Vital Signs 11/19/24 09:18 Height 5 ft 5 in Weight 175 lb BMI 29.1 BP 110/68 Blood Pressure Location Lt brachial Position Sitting Intake Visit Reasons: annual Intake Note: Patient here for an annual physical exam Direct Mail Coordinator Required: No Accompanied by: Spouse Allergies No Known Allergies Allergy (Verified 11/19/24 09:43) Medication List - Last Reconciled 11/19/24 by Kaitlynn Lima MD amitriptyline 10 mg PO BEDTIME 90 days atorvastatin 40 mg PO BEDTIME 90 days blood sugar diagnostic (FreeStyle Lite Strips) Use 1 strip once a day blood-glucose meter (FreeStyle Lite Meter kit) As directed cholecalciferol (vitamin D3) 25 mcg PO DAILY 90 days clotrimazole 1% 1 appl topical BID 2 weeks empagliflozin (Jardiance) 10 mg PO DAILY 90 days lancets (FreeStyle Lancets) Use 1 lancet once a day lisinopril 30 mg PO DAILY 90 days metformin 1,000 mg PO BID 90 days Tobacco use date assessed: 08/27/24 Fall risk assessment: No Falls in past year Last assessed Fall Risk: 11/19/24 Dental Screening Dental Screen Date: 08/27/24 HPI HPI Comments History of Present Illness Details The patient is a 63-year-old male presenting for a routine physical examination. The patient has a history of Type 2 Diabetes Mellitus, with the last recorded Hemoglobin A1c level at 9.2% in August, indicating suboptimal glycemic control. He is currently on Metformin and Jardiance for diabetes management. The patient also has a history of hypertension, managed with Lisinopril and Losartan, although there is a need to clarify the concurrent use of these medications. His blood pressure was recorded at 110/68 mmHg during the visit, indicating good control. Hyperlipidemia is another chronic condition for which the patient is taking Atorvastatin 40 mg. In terms of preventative care, the patient underwent a colonoscopy in May, and his vaccinations, including the tetanus vaccine, are up to date. He does not smoke or consume alcohol, and there is a family history of diabetes, as his mother is diabetic. - Colonoscopy performed in May - Vaccinations, including tetanus, are up to date [facility] Medical History Osteoarthritis Allergic rhinitis Mild asthma Neck pain Alcoholism Obese BPH (benign prostatic hyperplasia) Essential hypertension Mixed hyperlipidemia Diabetes mellitus Surgical History Hx of hand surgery Hx of left inguinal hernia repair History of colonoscopy Family History Father History of alcohol abuse Mother Alive and well Diabetes mellitus Social History (Updated 11/19/24 @ 10:04 by Kaitlynn Lima MD) Housing: House Are you a primary acute care nursing assistant to a significant other at home: No Do you presently have visiting nurse or other home services: No Alcohol intake: former Patient Tobacco Use Status: Never used Tobacco e-Cigarette/Vaping Use: Never Used Second Hand Smoke Exposure: No service: No Current occupational status: employed Current occupation: rt handed Current occupational exposures/hazards: No Cognitive needs: No Hearing needs: No Vision needs: Yes Questionnaire PHQ-9 Over the last 2 weeks, how often have you been bothered by any of the following problems? 1. Little interest or pleasure in doing things: not at all 2. Feeling down, depressed, or hopeless: not at all 3. Trouble falling or staying asleep, or sleeping too much: not at all 4. Feeling tired or having little energy: not at all 5. Poor appetite or overeating: not at all 6. Feeling bad about yourself - or that you are a failure or have let yourself or your family down: not at all 7. Trouble concentrating on things, such as reading the newspaper or watching television: not at all 8. Moving or speaking so slowly that other people could have noticed. Or the opposite - being so fidgety or restless that you have been moving around a lot more than usual: not at all 9. Thoughts that you would be better off or of hurting yourself in some way: not at all Total score: 0 Depression Screening Interpretation: Negative Depression Screening Done: Yes 75037 - PHQ-9 Billing: Yes Source: Developed by Drs. Carlos Rider, Ruba Harrison, Dereck Clarke and colleagues, with an educational yogi from [employer]. Thrive Questionnaire Date Thrive assessed: 11/12/24 I am a: Patient What is your living situation today?: I have a steady place to live Within the past 12 months, did the food you bought not last and you didn't have the money to get more?: Never true Within the past 12 months, did you worry whether your food would run out before you got money to buy more?: Never true Do you have trouble paying for medicines?: No Do you have trouble getting transportation to medical appointments?: No Do you have trouble paying your heating and electricity bill?: No Do you have trouble taking care of your child, family member or friend?: No Do you have trouble with day-to-day activities such as bathing, preparing meals, shopping, managing finances, etc.?: No Are you currently unemployed and looking for a job?: No Are you interested in more education?: No Please select the resources that you would like help with: None Currently or been in a relationship where the following occur: No concerns reported THRIVE Score: 0 AUDIT C Alcohol Use Questionnaire (AUDIT-C) 1. How often do you have a drink containing alcohol?: Never 2. How many drinks containing alcohol do you have on a typical day when you are drinking?: 1 or 2 3. How often do you have six or more drinks on one occasion?: Never Total Score: 0 Score Reviewed/Action Taken: No ROCHELLE-7 AMB Questionnaire ROCHELLE-7 Date ROCHELLE - 7 assessed: 08/27/24 Feeling nervous, anxious, or on edge: 0 = Not at all Not being able to stop or control worryin = Not at all Worrying too much about different things: 0 = Not at all Trouble relaxin = Not at all Being so restless that it is hard to sit still: 0 = Not at all Becoming easily annoyed or irritable: 0 = Not at all Feeling afraid as if something awful might happen: 0 = Not at all Total ROCHELLE-7 score (0-4 normal; 5-9 mild; 10-14 moderate; 15-21 severe): 0 Source: Developed by Drs. Carlos Rider, Ruba Harrison, Dereck Clarke and colleagues, with an educational yogi from [employer]. ROCHELLE-7 Assessment Billing ROCHELLE-7 Assessment Tool: ROCHELLE-7 Assessment 71371 Review of Systems Const All systems reviewed & are unremarkable except as noted in HPI and below Card Denies chest pain at rest, Denies chest pain with activity, Denies edema, Denies irregular heart rhythm, Denies claudication, Denies dyspnea, Denies dyspnea on exertion, Denies orthopnea, Denies paroxysmal nocturnal dyspnea and Denies slow heart rate Resp Denies cough, Denies dyspnea and Denies dyspnea on exertion GI Denies abdominal pain, Denies change in bowel habits, Denies excessive flatus, Denies nausea and Denies vomiting Denies urinary hesitancy, Denies urinary incontinence and Denies urinary urgency Musc Denies abnormal gait, Denies atrophy, Denies deformity and Denies limited range of motion Skin/Breast Denies bleeding lesions, Denies changing lesions and Denies rash Neuro Denies abnormal gait, Denies behavioral changes and Denies lack of coordination Psych Denies behavioral changes Physical exam (Primary Care) Vital Signs: Last Vital Signs BP 110/68 11/19/24 09:18 BMI result Body Mass Index 29.1 Tobacco/Smoking Status: Tobacco use Status Tobacco use date assessed 08/27/24 11/19/24 09:18 Patient Tobacco Use Status Never used Tobacco 11/19/24 10:04 e-Cigarette/Vaping Use Never Used 11/19/24 10:04 PHQ-9: PHQ-9 Score PHQ-9: Total score 0 11/19/24 09:44 Depression Screening Interpretation: Negative Thrive Assessment: Date of Thrive Assessment Date Thrive assessed 11/12/24 11/19/24 09:18 Currently or been in a relationship where the following occur: No concerns reported [facility] Head: Yes normal to inspection, Yes normocephalic and Yes atraumatic Ears: external ears normal Eyes General: appearance normal, both eyes and all related structures Eyelids: Yes eyelids normal Conjunctivae: conjunctivae normal Neck Neck: Yes normal visual inspection and Yes supple Resp Effort & Inspection: normal respiratory effort Auscultation: clear to auscultation bilaterally Cardio Jugular venous distension: no JVD Rate: regular rate Rhythm: regular rhythm Heart sounds: S1 normal heart sound present and S2 normal heart sound present GI Inspection: Yes normal to inspection Palpation (GI): Soft to palpation and nontender Auscultation: normal bowel sounds Skin General skin exam: no rashes or lesions noted Neuro General: no focal motor deficits Extrem General: Yes full ROM Psych Appearance: grossly normal Coding Level of Care Code Est Pt Prev Care 40-64y(90864) Diagnoses Physical exam Z00.00 Alcoholism F10.20 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 Type 2 diabetes mellitus without complication, without long-term current use of insulin E11.9 Diabetes mellitus type: type 2 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 insulin use: without senior living use Diabetes mellitus complication status: without complication Additional Codes ROCHELLE-7 Assessment Billing - ROCHELLE-7 Assessment Tool: ROCHELLE-7 Assessment 30132 ([id number]) PHQ-9 - 53153 - PHQ-9 Billing: Yes ([id number]) Time Spent (min) 30 Assessment & Plan Assessment & Plan (1) Physical exam: Code(s): Z00.00 - Encounter for general adult medical examination without abnormal findings Category: Medical (2) Alcoholism: Code(s): F10.20 - Alcohol dependence, uncomplicated Category: Medical (3) 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(s): F10.982 - Alcohol use, unspecified with alcohol-induced sleep disorder Category: Medical (4) Diabetes mellitus: Code(s): E11.9 - Type 2 diabetes mellitus without complications Category: Medical Qualifiers: Diabetes mellitus type: type 2 Diabetes mellitus senior living insulin use: without senior living use Diabetes mellitus complication status: without complication Qualified Code(s): E11.9 - Type 2 diabetes mellitus without complications Plan The patient will continue with his current diabetes management regimen, including Metformin and Jardiance, with a potential increase in Jardiance dosage if blood glucose levels remain elevated. For hypertension, the patient is advised to discontinue either Lisinopril or Losartan to avoid concurrent use, and follow-up with the composing machine operator is recommended for further management. The patient will continue taking Atorvastatin for hyperlipidemia management. Routine laboratory tests, including microalbumin, will be conducted to monitor kidney function and overall health status. Patient was informed and verbally consented to the use of an ambient scribe for clinic note documentation during this visit. Orders: Orders Vitamin D 25-OH Total Today E55.9 - Vitamin D deficiency, unspecified Lipid Panel Today E78.5 - Hyperlipidemia, unspecified Microalbumin, Random (w Creat) Today R80.9 - Proteinuria, unspecified Comprehensive [place]. Panel Fast Today E11.9 - Type 2 diabetes mellitus without complications
[2024-11-19 09:18] VITALS: BP 110/68; BMI 29.1
== END 2024-11-19 10:12 | disposition home or self-care (01) ==
LOC: HO.HMCH 08:44
PROVIDERS: PCP Internal Medicine; Visit Provider Internal Medicine
DX: Z00.00 Encounter for general adult medical examination without abnormal findings (principal); F10.982 Alcohol use, unspecified with alcohol-induced sleep disorder; E11.9 Type 2 diabetes mellitus without complications

== ENCOUNTER 2024-11-19 08:43 | Outpatient (REF) | payer OTHER, SELFPAY ==
[2024-11-19 11:20] LABS: Microalbum/Creatinine Ratio Ur 23.5 ug/mg cr (<30)
[2024-11-19 11:25] LABS: Alanine Aminotransferase 32 U/L (0-40); Albumin Level 4.2 g/dL (3.5-5.0); Alkaline Phosphatase 82 U/L (39-117); Anion Gap 9 (12-20); Aspartate Amino Transferase 25 U/L (5-37); Blood Urea Nitrogen 13 mg/dL (9-16); Calcium 9.1 mg/dL (8.4-10.2); Carbon Dioxide 29 mmol/L (22-29); Chloride 106 mmol/L (96-108); Cholesterol 131 mg/dL (<200); Estimated Glomerular Filt Rate > 60; HDL Cholesterol 54 mg/dL (>40); Potassium 4.4 mmol/L (3.3-5.1); Sodium 140 mmol/L (135-145); Total Protein 6.8 g/dL (6.5-8.0); Triglycerides 90 mg/dL (<150)
[2024-11-19 11:52] LABS: Folate 12.9 ng/mL (> or = 4.0); Vitamin B12 329 pg/mL (200-900)
== END 2024-11-19 08:44 | disposition home or self-care (01) ==
LOC: HO.LAB 08:43
PROVIDERS: PCP Internal Medicine; Visit Provider Internal Medicine
DX: Z00.00 Encounter for general adult medical examination without abnormal findings (principal); E11.9 Type 2 diabetes mellitus without complications; E55.9 Vitamin D deficiency, unspecified; I10 Essential (primary) hypertension; E78.5 Hyperlipidemia, unspecified; E53.8 Deficiency of other specified B group vitamins; F10.982 Alcohol use, unspecified with alcohol-induced sleep disorder
CPT/HCPCS: 36415; 80053; 80061; 82043; 82306; 82570; 82607; 82746; 96127

== ENCOUNTER 2025-03-24 14:39 | Outpatient (AMB) | payer OTHER, SELFPAY ==
[2025-03-24 15:14] VITALS: BP 120/70; PULSE 78; TEMP 36.2; O2SAT 98; BMI 30.6
--- NOTE | 2025-03-24 15:14 | MHC.PC.OV ---
Vital Signs 03/24/25 15:14 Height 5 ft 5 in Weight 184 lb BMI 30.6 BP 120/70 Blood Pressure Location Lt brachial Position Sitting Pulse 78 Pulse Source Pulse Oximeter Temp 97.1 F Temp Source Temporal Artery Scan Pulse Oximetry (%) 98 Oxygen Delivery Method Room Air Intake Visit Reasons: Follow Up Proofer [employer] Required: No Accompanied by: Spouse Allergies No Known Allergies Allergy (Verified 03/24/25 16:05) Medication List - Last Reconciled 03/24/25 by Kaitlynn Lima MD atorvastatin 40 mg PO BEDTIME 90 days blood sugar diagnostic (FreeStyle Lite Strips) Use 1 strip once a day blood-glucose meter (FreeStyle Lite Meter kit) As directed cholecalciferol (vitamin D3) 25 mcg PO DAILY 90 days clotrimazole 1% 1 appl topical BID 2 weeks empagliflozin (Jardiance) 10 mg PO DAILY 90 days lancets (FreeStyle Lancets) Use 1 lancet once a day lisinopril 30 mg PO DAILY 90 days metformin 1,000 mg PO BID 90 days Tobacco use date assessed: 03/24/25 Fall risk assessment: No Falls in past year Last assessed Fall Risk: 03/24/25 Dental Screening Dental Screen Date: 03/24/25 Did you have a dental visit in the last 12 months?: Yes Did you have a dental problem in the last 6 months where you did not have access to dental care?: No HPI HPI Comments History of Present Illness Details The patient is a 64 year old male presenting for a follow-up visit for chronic disease management and routine preventive care. He reports his blood glucose levels are sometimes normal and sometimes too high, but are more often normal. He confirms taking atorvastatin 40 mg for cholesterol, vitamin D, Jardiance 10 mg, lisinopril 30 mg, and metformin twice daily. He reports he stopped taking a previously prescribed medication for diabetes but does not recall the name. He has a history of knee replacement. He has no known drug allergies. He is up to date with his colonoscopy, and the last one was normal. [facility] Medical History (Updated 03/24/25 @ 20:13 by Kaitlynn Lima MD) Osteoarthritis Allergic rhinitis Mild asthma Neck pain Alcoholism Obese BPH (benign prostatic hyperplasia) Essential hypertension Mixed hyperlipidemia Diabetes mellitus Surgical History Hx of hand surgery Hx of left inguinal hernia repair History of colonoscopy Family History Father History of alcohol abuse Mother Alive and well Diabetes mellitus Social History Housing: House Are you a primary farm or ranch animal caretaker to a significant other at home: No Do you presently have visiting nurse or other home services: No Alcohol intake: former Patient Tobacco Use Status: Never used Tobacco e-Cigarette/Vaping Use: Never Used Second Hand Smoke Exposure: No service: No Current occupational status: employed Current occupation: rt handed Current occupational exposures/hazards: No Cognitive needs: No Hearing needs: No Vision needs: Yes Questionnaire Thrive Questionnaire Date Thrive assessed: 11/12/24 I am a: Patient What is your living situation today?: I have a steady place to live Within the past 12 months, did the food you bought not last and you didn't have the money to get more?: Never true Within the past 12 months, did you worry whether your food would run out before you got money to buy more?: Never true Do you have trouble paying for medicines?: No Do you have trouble getting transportation to medical appointments?: No Do you have trouble paying your heating and electricity bill?: No Do you have trouble taking care of your child, family member or friend?: No Do you have trouble with day-to-day activities such as bathing, preparing meals, shopping, managing finances, etc.?: No Are you currently unemployed and looking for a job?: No Are you interested in more education?: No Please select the resources that you would like help with: None Currently or been in a relationship where the following occur: No concerns reported THRIVE Score: 0 ROCHELLE-7 AMB Questionnaire ROCHELLE-7 Date ROCHELLE - 7 assessed: 08/27/24 Source: Developed by Drs. Carlos Rider, Ruba Harrison, Dereck Clarke and colleagues, with an educational yogi from [employer] Review of Systems Const All systems reviewed & are unremarkable except as noted in HPI and below Card Denies chest pain at rest, Denies chest pain with activity, Denies edema, Denies irregular heart rhythm, Denies claudication, Denies dyspnea, Denies dyspnea on exertion, Denies orthopnea, Denies paroxysmal nocturnal dyspnea and Denies slow heart rate Resp Denies cough, Denies dyspnea and Denies dyspnea on exertion Physical exam (Primary Care) Vital Signs: Last Vital Signs Temp 97.1 F 03/24/25 15:14 Pulse 78 03/24/25 15:14 BP 120/70 03/24/25 15:14 Pulse Ox 98 03/24/25 15:14 Oxygen Delivery Method Room Air 03/24/25 15:14 BMI result Body Mass Index 30.6 BMI Assessment/Plan discussion: High BMI High, discussed plan: lifestyle, weight reduction, dietary and physical activity Tobacco/Smoking Status: Tobacco use Status Tobacco use date assessed 03/24/25 03/24/25 15:22 Patient Tobacco Use Status Never used Tobacco 03/24/25 15:15 e-Cigarette/Vaping Use Never Used 03/24/25 15:15 Thrive Assessment: Date of Thrive Assessment Date Thrive assessed 11/12/24 03/24/25 15:15 Currently or been in a relationship where the following occur: No concerns reported Resp Effort & Inspection: normal respiratory effort Auscultation: clear to auscultation bilaterally Cardio Jugular venous distension: no JVD Rate: regular rate Rhythm: regular rhythm Heart sounds: S1 normal heart sound present and S2 normal heart sound present Extrem General: Yes full ROM Office Procedures Flu Questionnaire Does the patient have a severe egg allergy?: No Does the patient have severe life threatening allergies?: No Does the patient have a fever or illness today?: No Has the patient ever had Guillain-[place] Syndrome?: No Has the patient ever had any past reaction to a flu shot?: No Results AMB Hemoglobin A1c AMB Hemoglobin A1c 7.6 % Last Edit by ALBERTO Reno on 03/24/25 16:19 Immunizations Fluarix [id number] (PF) 45 mcg (15 mcg x 3)/0.5 mL IM syringe Performing Provider: Kaitlynn Lima MD Performing Location: [facility] Administered by: Mesha Schultz LPN on 03/24/25 16:27 Dose Route Admin Location Dispensed Lot Number Expiration Date [facility] Investment Sales Assistant 0.5 mL IM Left Deltoid 0.5 mL [id number] 01/14/26 [id number] [employer] VIS Given Date VIS Provided VIS Publication Date 03/24/25 Single Vaccine 24 Eligibility Eligibility Date Funding Source Not VFC Eligible 03/24/25 Private pneumoc 20-kendall conj-dip cr(PF) 0.5 mL IM syringe Performing Provider: Kaitlynn Lima MD Performing Location: [facility] Administered by: Mesha Schultz LPN on 03/24/25 16:27 Dose Route Admin Location Dispensed Lot Number Expiration Date [employer] Investment Sales Assistant 0.5 mL IM Right Deltoid 0.5 mL [id number] 01/14/26 [id number] [employer] Total Dispensed Waste 0.5 mL 0 % VIS Given Date VIS Provided VIS Publication Date 03/24/25 Single Vaccine 24 Eligibility Eligibility Date Funding Source Not VFC Eligible 03/24/25 Private Results Reviewed Results Reviewed: Laboratory Last Values Hgb A1c (Clinic) 7.6 % (4.0-6.0) H 03/24/25 16:06 Coding Level of Care Code Complex visit Add On G2211 Diagnoses Essential hypertension I10 Mixed hyperlipidemia E78.2 Type 2 diabetes mellitus without complication, without long-term current use of insulin E11.9 Diabetes mellitus type: type 2 Diabetes 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 operator insulin use: without keno terminal operator use Diabetes mellitus complication status: without complication Hypovitaminosis D E55.9 Time Spent (min) 22 Assessment & Plan Assessment & Plan (1) Essential hypertension: Code(s): I10 - Essential (primary) hypertension Category: Medical (2) Mixed hyperlipidemia: Code(s): E78.2 - Mixed hyperlipidemia Category: Medical (3) Diabetes mellitus: Code(s): E11.9 - Type 2 diabetes mellitus without complications Category: Medical Qualifiers: Diabetes mellitus type: type 2 Diabetes mellitus intermediate insulin use: without keno terminal operator use Diabetes mellitus complication status: without complication Qualified Code(s): E11.9 - Type 2 diabetes mellitus without complications (4) Hypovitaminosis D: Code(s): E55.9 - Vitamin D deficiency, unspecified Category: Medical Plan Plan 1. Diabetes Mellitus The patient's blood sugar is sometimes elevated. Continue current medications including Jardiance and metformin. Lab work will be done in approximately 4 months. 2. Hyperlipidemia The patient will continue taking atorvastatin 40 mg for cholesterol management. 3. Hypertension The patient will continue taking lisinopril 30 mg for blood pressure control. 4. Health Maintenance The patient agreed to receive the influenza vaccine and the PCV20 pneumonia vaccine today, as he is now 64 years old. His next tetanus vaccine is due next year, as the last one was in 2016. A follow-up visit is scheduled in 4 months for routine monitoring, and labs will be deferred until then. Orders: Orders AMB Hemoglobin A1c Today E11.9 - Type 2 diabetes mellitus without complications Lipid Panel 4 Months E78.5 - Hyperlipidemia, unspecified Microalbumin, Random (w Creat) 4 Months R80.9 - Proteinuria, unspecified Vitamin D 25-OH Total 4 Months E55.9 - Vitamin D deficiency, unspecified Influenza [id number] Immunization Today Z23 - Encounter for immunization Vitamin B12 and Folate 4 Months E53.8 - Deficiency of other specified B group vitamins Comprehensive [place]. Panel Fast 4 Months E11.9 - Type 2 diabetes mellitus without complications Pneumococcal 20 Immunization Today Z23 - Encounter for immunization
== END 2025-03-24 16:29 | disposition home or self-care (01) ==
LOC: HO.HMCH 14:40
PROVIDERS: PCP Internal Medicine; Visit Provider Internal Medicine
DX: I10 Essential (primary) hypertension (principal); E78.2 Mixed hyperlipidemia; E11.9 Type 2 diabetes mellitus without complications; E55.9 Vitamin D deficiency, unspecified; Z23 Encounter for immunization

== ENCOUNTER → 2025-03-24 14:39 | Outpatient (BNVA) | payer OTHER, SELFPAY | PROVIDERS: PCP Internal Medicine; Visit Provider Internal Medicine | DX: E11.9 Type 2 diabetes mellitus without complications (principal); I10 Essential (primary) hypertension; E78.2 Mixed hyperlipidemia; E55.9 Vitamin D deficiency, unspecified; Z23 Encounter for immunization; Z79.899 Other long term (current) drug therapy | CPT/HCPCS: 83036; 90471; 90472; 90656; 90677 ==